=== PATIENT | male | born 1940 | race Caucasian/White ===

== ENCOUNTER 2020-02-18 12:43 | Inpatient (IN) | payer MEDICARE, OTHER, SELFPAY ==
[2020-02-18] VITALS (20 sets, daily range): BP systolic 126–200; BP diastolic 62–93; PULSE 47–62; RESP 9–20; TEMP 36.2–36.8; O2SAT 94–100; BMI 25.1
--- NOTE | 2020-02-18 | DI.ECHO.S_ITS ---
[facility]---------+ [facility] +---------+ : : [address] : : : : [id number] : : : : Phone: [phone] Echocardiogram Report + + :Name: SOBIA SPENCE Study Date: 02/19/2020 Height: 68 in : :[facility] Weight: 165 lb : : Gender: Male BSA: 1.9 m2 : :: 1940 Age: 79 yrs BP: 168/72 mmHg: :Reason For Study: CVA : :Ordering Physician: ARASELI MCKENNA : :PLANNING MANAGER Performed By: Ambreen Mak : :Referring: ARASELI MCKENNA : + + Interpretation Summary The ejection fraction is estimated to be 60-65%. There is mild mitral regurgitation. The ascending aorta is mildly enlarged. Procedure: A two-dimensional transthoracic echocardiogram with color flow and Doppler was performed. The study quality was technically adequate. There is no prior echocardiogram noted for this patient. The patient was in sinus bradycardia with heart rates between 54-60 bpm during the exam. Left Ventricle: The left ventricle is normal in size and wall thickness. The ejection fraction is estimated to be 60-65%. Left ventricular wall motion is normal. Diastolic parameters suggest a relaxation abnormality of the left ventricle, consistent with probable normal filling pressures. Right Ventricle: The right ventricle is normal in size and function. Atria: The left atrium is mildly dilated. Right atrial size is normal. Mitral Valve: The mitral valve is normal in structure and function. There is mild mitral regurgitation. Aortic Valve: The aortic valve is not well visualized. The aortic valve is mildly calcified. There is no aortic valve stenosis. No aortic regurgitation is present. Tricuspid Valve: The tricuspid valve is normal in structure and function. There is trace tricuspid regurgitation. Pulmonic Valve: The pulmonic valve is not well seen, but is grossly normal. There is trace pulmonic regurgitation. Great Vessels: The aortic root is normal size. The ascending aorta is mildly enlarged. The IVC is of normal diameter and collapses greater than 50% with a sniff. This suggests a low right atrial pressure of 3 mm Hg. Pericardium/ Pleura There is no pericardial effusion. There is no pleural effusion. MMode/2D Measurements & Calculations LVIDd: 5.0 cm LVOT diam: 2.3 cm LVIDs: 3.0 cm Ao root diam: 3.5 cm FS: 39.8 % asc Aorta Diam: 4.0 cm IVSd: 0.63 cm Ao Arch Diam (Prox Trans): 2.6 cm LVPWd: 0.96 cm LV vu. diameter/BSA (cm/m^2): 2.6 LV sys. diameter/BSA (cm/m^2): 1.6 LA A2 area: 22.5 cm2 RA long axis: 4.9 cm LA A4 area: 16.4 cm2 RA area: 11.9 cm2 LA length (vol): 4.4 cm RA vol: 24.4 ml LA vol: 70.4 ml RA : 13.0 ml/m2 LA vol index: 37.4 ml/m2 IVC diam: 1.2 cm RVD1 (basal): 3.4 cm TAPSE: 1.7 cm Doppler Measurements & Calculations Ao V2 max: 147.7 cm/sec LVOT Max Crispin: 110.5 cm/sec Ao V2 mean: 102.8 cm/sec LV V1 max P.9 mmHg Ao max P.8 mmHg LV V1 VTI: 29.1 cm Ao mean P.8 mmHg LILLIANA(I,D): 3.4 cm2 Ao V2 VTI: 36.8 cm LILLIANA(V,D): 3.2 cm2 sev ratio: 0.79 LILLIANA indexed to BSA (cm^2/m^2): 1.8 MV E max crispin: 83.0 cm/sec PA V2 max: 66.2 cm/sec MV A max crispin: 92.2 cm/sec PA V2 mean: 40.4 cm/sec MV E/A: 0.90 PA mean P.78 mmHg Med Peak E' Crispin: 4.5 cm/sec PA pr(Accel): 19.1 mmHg E/E' med: 18.5 Lat Peak E' Crispin: 10.4 cm/sec E/E' lat: 8.0 E/e' average: 13.3 MV dec time: 0.33 sec SV(LVOT): 125.8 ml Reading Physician:03:27 PM
--- NOTE | 2020-02-18 | DI.CT.S_ITS ---
PROCEDURE: CT ANGIO HEAD AND NECK INDICATIONS: changes in stroke symptoms TECHNIQUE: Pre-contrast 4.5 mm thick sections acquired from the foramen magnum to the vertex. After the administration of intravenous contrast, 1 mm thick sections acquired from the aortic arch through the [place]. Post-contrast 4.5 mm thick sections then re-acquired from the foramen magnum to the vertex. 3-dimensional cdsfbed-bmdpwhtpd-ntpzocunsb (MIP) and/or volume rendering reformats were acquired of the central intracranial vasculature and neck separately. COMPARISON: [facility], CT, CT ANGIO HEAD AND NECK, 02/18/2020, 16:10. FINDINGS: Image quality: Excellent. BRAIN: CSF spaces: Ventricles are symmetric in size and shape. Basal cisterns are patent. No extra-axial fluid collections. Brain: No midline shift. No acute intracranial hemorrhage or mass effect. Hypodensities in the subcortical and periventricular white matter compatible with chronic microvascular ischemic changes. There is mild age-related cerebral and cerebellar volume loss. Skull and face: Stable postsurgical changes in the left frontoparietal region. Sinuses: Sinuses and mastoids are clear. HEAD CT ANGIOGRAPHY: Anterior circulation: Intracranial internal carotid arteries demonstrate mild atherosclerotic calcifications. The flow within the paired anterior cerebral arteries is normal and symmetric. The flow within the middle cerebral arteries is normal and symmetric. The anterior communicating artery is seen. No aneurysms are seen. Posterior circulation: Atherosclerotic calcifications are again seen in the proximal intracranial portion of the left vertebral artery resulting in a short segment of moderate stenosis. The right vertebral artery is patent. Flow within the posterior cerebral arteries is normal and symmetric. No aneurysms are seen. NECK CT ANGIOGRAPHY: Carotid system: The left common carotid artery arises from the brachiocephalic artery, which is a normal variant. The origins of the common carotid arteries appear patent. The common carotid arteries demonstrate normal caliber and courses. Calcified atherosclerotic plaque is seen at the right carotid bifurcation and proximal right internal carotid artery resulting in less than 50% stenosis. Calcified atherosclerotic plaque is seen in the left carotid bulb resulting in moderate, 50-69%, stenosis of the proximal left internal carotid artery. Posterior circulation: The right vertebral artery origin is patent. Atherosclerotic plaque is seen at the origin of the left vertebral artery resulting in moderate stenosis. The more superior extracranial portions of both vertebral arteries also demonstrate normal courses and calibers. They join to form a normal appearing basilar artery. Soft tissues: Visualized neck soft tissues demonstrate no suspicious abnormalities. Bones: No suspicious bony lesions. Visualized cervical spine demonstrates multilevel degenerative changes.. IMPRESSION: 1. No acute intracranial hemorrhage or mass effect. 2. No new large vessel occlusion or dissection is seen. 3. 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 4. Less than 50% stenosis at the origin of the right internal carotid artery. 5. Moderate short-segment stenoses again seen at the origin of the left vertebral artery and in the V4 segment of the left vertebral artery. Any quantitative measurements of stenosis were performed using NASCET criteria. Dictated by: Charles Dhaliwal M.D. on 02/18/2020 at 21:38 Approved by: Charles Dhaliwal M.D. on 02/18/2020 at 21:57
--- NOTE | 2020-02-18 13:00 | ED_ITS ---
HPI - General Adult General Chief complaint: Weakness Stated complaint: weakness Time Seen by Provider: 02/18/20 13:00 Source: patient and EMS Mode of arrival: EMS Limitations: no limitations History of Present Illness HPI narrative: Patient is a 79-year-old male. History of a traumatic subdural several years ago. Not on anticonvulsants also has a history of coronary artery disease. Had a coronary artery bypass graph greater than 20 years ago. No history of atrial fibrillation here for evaluation of weakness/dizziness. Patient states that he woke up this morning feeling weak and dizzy. He describes an unsteady feeling. Not a vertigo sensation. Denies any other associated symptoms. Stated he did fall at home because of this. Was able to get up on his own. Sustained no injuries from the fall. Went to the dog park where he states that he continue to feel weak and dizzy. He fell again. He did hit his head. There was no loss of consciousness. Patient reports that he continues to feel somewhat progressively worsening with the weakness. Brought in by EMS. Was bradycardic to the high 50s per EMS. Did appear to be irregular on their monitor. Blood sugar was greater than 120. Related Data Home Medications Medication Instructions Recorded Confirmed Adult Low Dose Aspirin 80 mg PO DAILY 02/18/20 02/18/20 atorvastatin 80 mg PO DAILY 02/18/20 02/18/20 levothyroxine [Levoxyl] 112 mcg PO DAILY 02/18/20 02/18/20 lisinopril 5 mg PO DAILY 02/18/20 02/18/20 omeprazole 20 mg PO DAILY 02/18/20 02/18/20 Allergies Allergy/AdvReac Type Severity Reaction Status Date / Time No Known Drug Allergies Allergy Verified 02/18/20 13:20 Review of Systems Constitutional Constitutional: Denies chills, Denies difficulty sleeping, Denies fever(s), Denies headache(s), Denies malaise and Reports weakness Eyes Eyes: Denies exophthalmos and Denies change in vision ENT Ears, Nose, Mouth, and Throat: Denies vertigo, Reports dizziness and Denies headache(s) Cardiovascular Cardiovascular: Denies chest pain, Denies syncope, Denies rapid heart rate, Denies edema, Denies irregular heart rhythm, Reports lightheadedness and Denies dyspnea Respiratory Respiratory: Denies cough and Denies dyspnea Gastrointestinal Gastrointestinal: Denies abdominal pain, Denies nausea and Denies vomiting Genitourinary Genitourinary: Denies dysuria Genitourinary: Denies dysuria Musculoskeletal Musculoskeletal: Denies arthralgias, Denies myalgias, Denies numbness and Denies tingling Integumentary/Breasts Skin/Breast: Denies lesions and Denies rash Neurologic Neurologic: Denies abnormal speech, Denies behavioral changes, Denies confusion, Denies vertigo, Reports dizziness, Denies syncope, Denies headache(s), Reports lack of coordination, Reports localized weakness, Denies numbness, Denies restless legs, Denies tingling and Reports weakness Psychiatric Psychiatric: Denies anxiety, Denies behavioral changes and Denies confusion Hematologic/Lymphatic Hematologic/Lymphatic: Denies easy bleeding and Denies easy bruising Allergic/Immunologic Allergic/Immunologic: Denies urticaria Patient History Medical History Coronary artery disease (Acute) Hypothyroid (Acute) Traumatic subdural hematoma (Acute) Social History Smoking Status: Former smoker Smoking Status: Former smoker Exam Initial Vital Signs Initial Vital Signs: Vital Signs Pulse Rate 47 L 02/18/20 12:53 Respiratory Rate 18 02/18/20 12:53 Blood Pressure 160/70 H 02/18/20 12:53 Pulse Oximetry 100 02/18/20 12:53 Const General: cooperative, comfortable, well developed and well groomed Limitations: mental status not altered HENWI Head: contusion Face and sinus: normal facial exam Mouth: oral mucosae normal Eyes General: appearance normal, both eyes and all related structures Resp Effort & Inspection: normal respiratory effort Auscultation: clear to auscultation bilaterally Cardio Rate: bradycardic Rhythm: regular rhythm GI Inspection: non-distended Palpation: soft Skin Other: Superficial abrasion right ankle superficial abrasion left parietal marty on Neuro General: patient alert, patient awake and patient oriented x3 Cranial Nerves: CN's II-XI intact bilaterally Cognition: normal cognition Speech: speech normal Sensory Exam: no sensory deficits noted Coordination: [id number] test normal Extrem General: normal to inspection and capillary refill normal Psych Appearance: grossly normal and well kempt Scores GCS [place] coma scale eye opening: Spontaneous [place] coma scale verbal response: Orientated [place] coma scale motor response: Obey commands [place] coma scale total score: 15 NIH Stroke Scale Level of Conciousness: Alert, keenly responsive Ask month/age: Answers both questions correctly. Open/close eyes, close hand: Performs both tasks correctly Best gaze horizontal: Normal Visual morfin: No visual loss Facial palsy: Normal symetrical movement Left arm drift: No drift for full 10 sec Right arm drift: No drift for full 10 sec Left leg drift: Drifts down, not to bed Right leg drift: No drift for full 5 sec Limb ataxia: Absent Sensory on face/arms/legs: Normal, no sensory loss Best language: No aphasia, normal Dysarthria: Normal Extinction or inattention: No abnormality Total NIH Stroke scale score: 1 Course Orders Ordered: ED Orders 02/18/20 13:03 CT head/brain wo con Stat 02/18/20 13:04 EKG-12 Lead Stat 02/18/20 13:05 Complete Blood Count AUTO DIFF Stat Comprehensive Metabolic Panel Stat Lipase Stat Partial Thromboplastin Time Stat Prothrombin Time INR Stat Thyroid Stimulating Hormone Stat Troponin & CK Cardiac Panel Stat 02/18/20 13:21 Ammonia (NH3) Stat Vital Signs Vital signs: Vital Signs - 8 hr 02/18/20 12:53 02/18/20 13:14 02/18/20 13:16 Temperature 98.2 F Pulse Rate 47 L 48 L Respiratory Rate 18 15 Blood Pressure 160/70 H Pulse Oximetry 100 100 02/18/20 13:20 02/18/20 13:30 02/18/20 13:54 Temperature Pulse Rate 48 L 48 L 47 L Respiratory Rate 16 12 14 Blood Pressure 126/62 175/73 H Pulse Oximetry 99 100 97 02/18/20 14:00 02/18/20 14:30 02/18/20 14:31 Temperature Pulse Rate 47 L 52 L 53 L Respiratory Rate 15 14 13 Blood Pressure 171/75 H 171/74 H Pulse Oximetry 94 99 99 02/18/20 14:34 Temperature Pulse Rate 54 L Respiratory Rate 18 Blood Pressure 161/71 H Pulse Oximetry 97 Medical Decision Making Lab Data Result diagrams: 02/18/20 13:05 02/18/20 13:05 Labs: Lab Results 02/18/20 02/18/20 02/18/20 Range/Units 13:05 13:05 13:05 WBC 6.7 (4.5-11.0) X10^3/uL RBC 4.12 L (4.5-5.9) X10^6/uL Hgb 13.0 L (13.5-17.5) g/dL Hct 37.3 L (41-53) % MCV 90.4 (80-100) fL MCH 31.4 (26-34) PG MCHC 34.8 (30-36) % RDW 13.0 (11.6-14.8) % Plt Count 173 (150-400) X10^3/uL Neut % (Auto) 61.4 (50-75) % Lymph % (Auto) 25.5 (25-40) % [place] % (Auto) 7.5 (3-14) % Eos % (Auto) 4.9 H (2-4) % Baso % (Auto) 0.7 (0-2) % Neut # (Auto) 4100 (9553-5853) /uL Lymph # (Auto) 1700 (4688-8916) /uL [place] # (Auto) 500 (0-900) /uL Eos # (Auto) 300 (0-450) /uL Baso # (Auto) 0 (0-100) /uL PT 11.3 (10.1-12.7) SECONDS INR 1.0 (0.9-1.3) APTT 24 L (26.4-36.2) SECONDS Sodium 138 (137-145) mmol/L Potassium 4.4 (3.4-5.1) mmol/L Chloride 110 H (98-107) mmol/L Carbon Dioxide 20 L (22-32) mmol/L BUN 28 H (9-20) mg/dL Creatinine 0.94 (0.66-1.25) mg/dL Estimated GFR > 60.0 (>60) mL/min BUN/Creatinine Ratio 29.8 H (6-22) Glucose 127 H (80-110) mg/dL Calcium 9.2 (8.4-10.2) mg/dL Total Bilirubin 0.5 (0.2-1.3) mg/dL AST 27 (17-59) IU/L ALT 27 (<50) IU/L Alkaline Phosphatase 92 (38-126) U/L Ammonia (9-30) umol/L Total Creatine Kinase 82 (55-170) U/L CK-MB (CK-2) TNP CK-MB (CK-2) Rel Index TNP Troponin I < 0.012 (0.01-0.034) ng/mL Total Protein 7.0 (6.3-8.2) g/dL Albumin 4.1 (3.5-5.0) g/dL Globulin 2.9 (1.7-4.1) g/dL Albumin/Globulin Ratio 1.4 (1.0-2.8) Lipase 58 (23-300) U/L TSH (0.47-4.68) uIU/mL 02/18/20 02/18/20 Range/Units 13:05 13:21 WBC (4.5-11.0) X10^3/uL RBC (4.5-5.9) X10^6/uL Hgb (13.5-17.5) g/dL Hct (41-53) % MCV (80-100) fL MCH (26-34) PG MCHC (30-36) % RDW (11.6-14.8) % Plt Count (150-400) X10^3/uL Neut % (Auto) (50-75) % Lymph % (Auto) (25-40) % [place] % (Auto) (3-14) % Eos % (Auto) (2-4) % Baso % (Auto) (0-2) % Neut # (Auto) (6653-5390) /uL Lymph # (Auto) (9397-4414) /uL [place] # (Auto) (0-900) /uL Eos # (Auto) (0-450) /uL Baso # (Auto) (0-100) /uL PT (10.1-12.7) SECONDS INR (0.9-1.3) APTT (26.4-36.2) SECONDS Sodium (137-145) mmol/L Potassium (3.4-5.1) mmol/L Chloride (98-107) mmol/L Carbon Dioxide (22-32) mmol/L BUN (9-20) mg/dL Creatinine (0.66-1.25) mg/dL Estimated GFR (>60) mL/min BUN/Creatinine Ratio (6-22) Glucose (80-110) mg/dL Calcium (8.4-10.2) mg/dL Total Bilirubin (0.2-1.3) mg/dL AST (17-59) IU/L ALT (<50) IU/L Alkaline Phosphatase (38-126) U/L Ammonia < 9 L (9-30) umol/L Total Creatine Kinase (55-170) U/L CK-MB (CK-2) CK-MB (CK-2) Rel Index Troponin I (0.01-0.034) ng/mL Total Protein (6.3-8.2) g/dL Albumin (3.5-5.0) g/dL Globulin (1.7-4.1) g/dL Albumin/Globulin Ratio (1.0-2.8) Lipase (23-300) U/L TSH 4.70 H (0.47-4.68) uIU/mL Point of Care Testing Glucose POC 122 Point of care testing: Point of Care Testing Glucose POC [address] scan - head: Radiologist's Impression: [place] [address] CT Scan Report Signed Patient: Elie Tong FMR#: [id number] : 1940cct:[id number] Age/Sex: 79 / MDate of Service: 02/18/20 Loc: ED Accession Number: [id number] Procedure: CT head/brain wo con Ordering Provider: Paras Mohr D.O. PROCEDURE: CT HEAD/BRAIN WO CON INDICATIONS: weakness hx of bleed TECHNIQUE: Noncontrast 4.5 mm thick angled axial sections acquired from the foramen magnum to the vertex, with coronal and sagittal reformats. For radiation dose reduction, the following was used: automated exposure control, adjustment of mA and/or kV according to patient size. COMPARISON: None. FINDINGS: Image quality: Excellent. CSF spaces: Basal cisterns are patent. No extra-axial fluid collections. There is mild to moderate cerebral volume loss, with resultant ventricular and sulcal prominence. There is slight asymmetric volume loss in the left occipital and posterior temporal lobes and left cerebellar hemisphere. Brain: No intracranial hemorrhage, mass, or mass effect. There are subcortical, periventricular and deep white matter hypodensities consistent with mild to moderate chronic small vessel ischemic changes. There is intracranial internal carotid artery atherosclerosis. Skull and face: Calvarium and visualized facial bones appear intact, without suspicious lesions. Sinuses: Visualized sinuses and mastoids are clear. IMPRESSION: 1. No acute intracranial abnormality. 2. Mild to moderate cerebral volume loss with slight left-sided predominance. 3. Mild to moderate chronic white matter small vessel ischemic changes. Dictated by: Loi Harrison M.D. on 02/18/2020 at 12:19 Approved by: Loi Harrison M.D. on 02/18/2020 at 12:30 ECG Data Attestation: I personally reviewed and interpreted this ECG as follows: Prior ECG tracings: not available for review Interpretation: Sinus bradycardia Ventricular rate of 51 Normal axis Normal QRS Normal QTC One PAC MDM Narrative Medical decision making narrative: After time and food here in the emergency department patient states he is back to normal. He tolerated oral intake. He walked around the department without any problems. His head CT shows no acute changes. His EKG shows no signs of atrial fibrillation despite of what was initially thought on the EMS tracings. Has a NIH score of 1 and that was secondary to his left leg falling however not hitting the bed. He has a nonfocal neurologic exam otherwise. Is alert oriented x3. His head CT shows no signs of a bleed. Considered etiology such as CVA however his exam is not consistent with this. Also considered TIA however his exam is again not 100% consistent with this. Since his head injury several years ago he states that he occasionally has episodes like this. He does have a primary doctor. A referral has been placed to neurology but he has not scheduled this with a neurologist up to this point. I feel patient could be safely discharged home given his exam currently. We did discuss return precautions and follow-up instructions. He expressed understanding and agreement. Discharge Plan Departure Patient Disposition: Home Clinical Impression: Weakness, Dizziness Instructions: DI for Dizziness-Nonvertigo Activity Restrictions/Additional Instructions: Continue all of your medications as directed. I do recommend that you contact your primary provider for follow-up and to discuss the your referral to see Neurology. If you would like you can contact the Behavioral Health Department here at the hospital. You can contact them at [phone]. Return to the emergency department for any new or worsening symptoms. Continue all of your medications as directed Prescriptions: No Action atorvastatin 80 mg Tablet 80 mg PO DAILY RF: 0 Adult Low Dose Aspirin tablet 80 mg PO DAILY RF: 0 lisinopril 5 mg Tablet 5 mg PO DAILY RF: 0 levothyroxine [Levoxyl] 112 mcg tablet 112 mcg PO DAILY RF: 0 omeprazole 20 mg capsule,delayed release(DR/EC) 20 mg PO DAILY RF: 0
--- NOTE | 2020-02-18 13:03 | DI.CT.S_ITS ---
PROCEDURE: CT HEAD/BRAIN WO CON INDICATIONS: weakness hx of bleed TECHNIQUE: Noncontrast 4.5 mm thick angled axial sections acquired from the foramen magnum to the vertex, with coronal and sagittal reformats. For radiation dose reduction, the following was used: automated exposure control, adjustment of mA and/or kV according to patient size. COMPARISON: None. FINDINGS: Image quality: Excellent. CSF spaces: Basal cisterns are patent. No extra-axial fluid collections. There is mild to moderate cerebral volume loss, with resultant ventricular and sulcal prominence. There is slight asymmetric volume loss in the left occipital and posterior temporal lobes and left cerebellar hemisphere. Brain: No intracranial hemorrhage, mass, or mass effect. There are subcortical, periventricular and deep white matter hypodensities consistent with mild to moderate chronic small vessel ischemic changes. There is intracranial internal carotid artery atherosclerosis. Skull and face: Calvarium and visualized facial bones appear intact, without suspicious lesions. Sinuses: Visualized sinuses and mastoids are clear. IMPRESSION: 1. No acute intracranial abnormality. 2. Mild to moderate cerebral volume loss with slight left-sided predominance. 3. Mild to moderate chronic white matter small vessel ischemic changes. Dictated by: Loi Harrison M.D. on 02/18/2020 at 12:19 Approved by: Loi Harrison M.D. on 02/18/2020 at 12:30
[2020-02-18 13:14] LABS: Add Manual Diff / Slide Review NO; Basophils Absolute Auto 0 /uL (0-100); Basophils Percent Auto 0.7 % (0-2); Eosinophils Absolute Auto 300 /uL (0-450); Eosinophils Percent Auto 4.9 % (2-4); Hematocrit 37.3 % (41-53); Lymphocytes Absolute Auto 1700 /uL (1100-4500); Lymphocytes Percent Auto 25.5 % (25-40); Mean Corpuscular HGB Conc 34.8 % (30-36); Mean Corpuscular Hemoglobin 31.4 PG (26-34); Mean Corpuscular Volume 90.4 fL (80-100); Monocytes Absolute Auto 500 /uL (0-900); Monocytes Percent Auto 7.5 % (3-14); Neutrophils Absolute Auto 4100 /uL (1500-7000); Neutrophils Percent Auto 61.4 % (50-75); Platelet Count 173 X10^3/uL (150-400); Red Blood Cell Count 4.12 X10^6/uL (4.5-5.9); White Blood Cell Count 6.7 X10^3/uL (4.5-11.0)
[2020-02-18 13:26] LABS: Prothrombin Time 11.3 SECONDS (10.1-12.7)
[2020-02-18 13:28] LABS: PTT Partial Thromboplastin Tim 24 SECONDS (26.4-36.2)
[2020-02-18 13:32] LABS: Alanine Aminotransferase 27 IU/L (<50); Albumin 4.1 g/dL (3.5-5.0); Albumin Globulin Ratio 1.4 (1.0-2.8); Alkaline Phosphatase 92 U/L (38-126); Aspartate Aminotransferase 27 IU/L (17-59); BUN Creatinine Ratio 29.8 (6-22); Bilirubin Total 0.5 mg/dL (0.2-1.3); Blood Urea Nitrogen 28 mg/dL (9-20); Calcium 9.2 mg/dL (8.4-10.2); Carbon Dioxide 20 mmol/L (22-32); Chloride 110 mmol/L (98-107); Creatine Kinase 82 U/L (55-170); Estimated Glomerular Filt Rate > 60.0 mL/min (>60); Globulin 2.9 g/dL (1.7-4.1); Glucose 127 mg/dL (80-110); HEMOLYSIS 23 (0-50); Lipase 58 U/L (23-300); Potassium 4.4 mmol/L (3.4-5.1); Sodium 138 mmol/L (137-145)
[2020-02-18 13:47] LABS: Troponin I < 0.012 ng/mL (0.01-0.034)
[2020-02-18 14:23] LABS: Ammonia (NH3) < 9 umol/L (9-30)
--- NOTE | 2020-02-18 15:08 | PC.NURSE ---
pt able to ambulate with steady gait from stretcher in room to bathroom and back.
--- NOTE | 2020-02-18 15:12 | PC.NURSE ---
patient denies dizziness or unsteady in legs. Ambulated to restroom and back. Tolerated well
--- NOTE | 2020-02-18 16:00 | PC.NURSE ---
As the patient was walking to the lobby he stopped at the bathroom. Pt came out of the bathroom and slumped against the doorway. Pt told staff he felt dizzy,left sided facial droop noticed that was not there when he was discharged. Code stroke called.
--- NOTE | 2020-02-18 16:08 | DI.CT.S_ITS ---
PROCEDURE: CT ANGIO HEAD AND NECK INDICATIONS: Code stroke TECHNIQUE: Pre-contrast 4.5 mm thick sections acquired from the foramen magnum to the vertex. After the administration of intravenous contrast, 1 mm thick sections acquired from the aortic arch through the [place] of [place]. Post-contrast 4.5 mm thick sections then re-acquired from the foramen magnum to the vertex. 3-dimensional ghurpfv-ulrqpioxc-ifkflcyfbt (MIP) and/or volume rendering reformats were acquired of the central intracranial vasculature and neck separately. COMPARISON: [facility], CT, CT HEAD/BRAIN WO CON, 02/18/2020, 16:10. [facility], CT, CT HEAD/BRAIN WO CON, 02/18/2020, 13:04. FINDINGS: Image quality: Excellent. BRAIN: CSF spaces: Ventricles are normal in size and shape. Basal cisterns are patent. No extra-axial fluid collections. Brain: No midline shift. No intracranial bleeds or masses. Winters-white matter interface appears intact. Skull and face: Calvarium and facial bones appear intact, without suspicious lesions. Left parietal margi holes noted. Small air locule noted in the left parietal scalp possibly related to laceration. Orbits appear normal. Sinuses: Sinuses and mastoids are clear. HEAD CT ANGIOGRAPHY: Anterior circulation: Intracranial internal carotid arteries are normal in flow. Atherosclerotic calcification noted in the supraclinoid segments of the internal carotid arteries bilaterally which causes mild narrowing of the vessels. The flow within the paired anterior cerebral arteries is normal and symmetric. The flow within the middle cerebral arteries is normal and symmetric. The anterior communicating artery is seen. No aneurysms are seen. Posterior circulation: Atherosclerotic calcification noted in the proximal V4 segment of the left vertebral artery which causes moderate, short segment stenosis. Normal flow noted in the left vertebral artery and the basilar artery. Flow within the posterior cerebral arteries is normal and symmetric. No aneurysms are seen. Dural sinuses demonstrate normal postcontrast enhancement. NECK CT ANGIOGRAPHY: Carotid system: The great vessels demonstrate bovine variant anatomy as they arise from the aortic arch. The origins of the common carotid arteries appear patent. The common carotid arteries demonstrate normal caliber and courses. Atherosclerotic plaque noted in the origin of the right internal carotid artery causes less than 50% stenosis of the vessel. Atherosclerotic plaque noted in the origin of the left internal carotid artery which causes moderate, 50-69% stenosis of the vessel. Posterior circulation: Origin of the right vertebral artery is fully patent. Atherosclerotic calcification noted in the origin of the left vertebral artery which causes moderate stenosis. The more superior extracranial portions of both vertebral arteries also demonstrate normal courses and calibers. They join to form a normal appearing basilar artery. Soft tissues: Visualized neck soft tissues demonstrate no suspicious abnormalities. Visualized liver, and spleen are normal. Heart is enlarged. Atherosclerotic calcifications noted in the coronary vasculature. Postsurgical changes compatible with prior CABG procedure are noted. Bones: No suspicious bony lesions. Spine degenerative disc disease and facet arthropathy.Visualized cervical spine appears normally aligned. IMPRESSION: 1. No acute intracranial disease process. 2. No large vessel occlusion, vascular dissection or aneurysm. 3. Mild less than 50% stenosis of the origin of the right internal carotid artery. 4. Moderate, approximately 50-69% stenosis of the origin of the left internal carotid artery. 5. Moderate stenosis of the origin of the left vertebral artery and moderate stenosis of the V4 segment of the left vertebral artery. Any quantitative measurements of stenosis were performed using NASCET criteria. Dictated by: Tyesha Wharton MD, PhD on 02/18/2020 at 16:37 Approved by: Tyesha Wharton MD, PhD on 02/18/2020 at 16:51
--- NOTE | 2020-02-18 16:08 | DI.CT.S_ITS ---
PROCEDURE: CT HEAD/BRAIN WO CON INDICATIONS: Code stroke TECHNIQUE: Noncontrast 4.5 mm thick angled axial sections acquired from the foramen magnum to the vertex, with coronal and sagittal reformats. For radiation dose reduction, the following was used: automated exposure control, adjustment of mA and/or kV according to patient size. COMPARISON: None. FINDINGS: Image quality: Excellent. CSF spaces: Basal cisterns are patent. No extra-axial fluid collections. Ventricles are normal in size and shape. Brain: No midline shift. No intracranial masses or hemorrhage. Winters-white matter interface is normal. Skull and face: There are 2 left frontal margi holes noted. No acute or suspicious osseous lesion. Sinuses: Visualized sinuses and mastoids are clear. IMPRESSION: No acute intracranial hemorrhage or CT evidence of acute large territory infarct. Findings were discussed with Dr. Paras Mohr at 4:30 p.m. PST on 02/18/2020. Dictated by: Dogulas Aldana M.D. on 02/18/2020 at 16:30 Approved by: Douglas Aldana M.D. on 02/18/2020 at 16:32
--- NOTE | 2020-02-18 16:14 | PC.NURSE ---
after being d/c pt was ambulating from bathrom back to room states being very weak had to stabalize himself on wall brought back too room pt is having left sided facial droop with weakness. pt assessed at bedside by ct called pt transported via [facility] [place]
[2020-02-18] MEDS: lisinopriL 10 MG TABLET PO (17:38)
[2020-02-18] MEDS: ASPIRIN 81 MG CHEW TAB 324 MG PO (18:22)
[2020-02-18 18:59] LABS: COVID19 -Nasal RAPID Negative (Negative)
--- NOTE | 2020-02-18 20:12 | P.HP_ITS ---
History of Present Illness History of Present Illness Date Patient Seen: 02/18/20 Time Patient Seen: 20:14 Chief complaint: weakness Narrative: Elie Tong is a 79-year-old male with a history of a subdural hemorrhage and craniotomy in 2018, coronary artery disease, 5 way CABG, hyperlipidemia, and hypothyroidism presented to the emergency department earlier in the day with a fall and weakness. He does indicate to me that he has problems with his balance that he feels is attributed to the subdural hemorrhage from 2 years ago. He is quite tangential. Per the emergency department they had planned on discharging him home and when he left the emergency room he went to use the bathroom on his way out and was having troubles walking. Review of the emergency department note indicated that he was having problems slurring his words, drooping of the left side of his mouth, and NIH score of 10 which of which his subsequent deficits were not known. He underwent imaging with a CT angiogram of the head and neck and when he returned to the emergency department room his NIH scale was 2. They had a Dr. Armenta neurologist form the tele stroke service at [facility] evaluate the patient's imaging studies and they at that time decided to hold tPA due to significant resolution of his symptoms. The patient per the emergency room department report was given oral lisinopril due to a blood pressure of greater than 200 on initial presentation. As mention the patient states that he had a subdural hematoma from a fall that he sustained in 2017. He states he underwent a craniotomy, unsure of what was actually done at [facility] in [place]. He does deny fever sweats or chills, he denies chest pain shortness of breath, he has had some diarrhea over the past few weeks for which he has been eating more red meat to try to alleviate, he has numbing on the tips of his fingers and feet and has previously taken biologics for psoriatic arthritis. Patient's temperature was 97.2?, blood pressure 136/71, heart rate 59, respiratory rate 20, oxygen saturation 97% on room air, he weighs 75 kg with a BMI of 25.1. WBC is 6.7, RBC 4.12, hemoglobin 13, hematocrit 37.3, platelet count 173, sodium 138, potassium 4.4, chloride 110, bicarb 20, BUN 28, creatinine 0.94, GFR is greater than 60, glucose is 127, calcium 9.2, liver enzymes are within normal limits and his troponin is 0.12, TSH is borderline 4.7, and COVID-19 screen is negative. When the patient arrived to the floor, I went in to assess him and he had an NIH scale of 12. Upon leaving the room I was notified by the nurse that he was having increasing worsening deficits. Second code stroke was announced. He is now complaining of not being able to see out of his left eye. Tele stroke was again contacted, spoke to Dr. Giordano. She requested that he have a repeat CTA of the head neck in the case he is showing more occlusion and would require a thrombectomy. Patient History Medical History (Updated 02/18/20 @ 18:03 by Paras Mohr DO) Coronary artery disease (Acute) Hypothyroid (Acute) Traumatic subdural hematoma (Acute) Surgical History (Updated 02/18/20 @ 21:07 by EV Ricci) History of cataract removal with insertion of prosthetic lens (Acute) Hx of cholecystectomy (Acute) Hx of five vessel coronary artery bypass (Acute) Family & Social History Social History: household members none Safety & Behavioral: Feels Safe in Current Yes Environment Been Physically Hurt or No Threatened By a Person Suicidal Ideation Description None Suicide Plan Description No Plan Tobacco & Substance use: Smoking Status Former smoker alcohol intake current alcohol intake frequency holiday/special occasion Substance Use Type does not use Meds Home Medications and Allergies Home Medications Medication Instructions Recorded Confirmed Type Adult Low Dose Aspirin 80 mg PO DAILY 02/18/20 02/18/20 History atorvastatin 80 mg PO DAILY 02/18/20 02/18/20 History levothyroxine [Levoxyl] 112 mcg PO DAILY 02/18/20 02/18/20 History lisinopril 5 mg PO DAILY 02/18/20 02/18/20 History omeprazole 20 mg PO DAILY 02/18/20 02/18/20 History Allergies Allergy/AdvReac Type Severity Reaction Status Date / Time No Known Drug Allergies Allergy Verified 02/18/20 13:20 Review of Systems Review of Systems ROS: Yes All systems reviewed with the patient and are negative except as otherwise documented Exam Vital Signs (past 8 hours): - 02/18/20 12:53 02/18/20 13:14 02/18/20 13:16 Temperature 98.2 F Pulse Rate 47 L 48 L Respiratory Rate 18 15 Blood Pressure 160/70 H Pulse Oximetry 100 100 02/18/20 13:20 02/18/20 13:30 02/18/20 13:54 Temperature Pulse Rate 48 L 48 L 47 L Respiratory Rate 16 12 14 Blood Pressure 126/62 175/73 H Pulse Oximetry 99 100 97 02/18/20 14:00 02/18/20 14:30 02/18/20 14:31 Temperature Pulse Rate 47 L 52 L 53 L Respiratory Rate 15 14 13 Blood Pressure 171/75 H 171/74 H Pulse Oximetry 94 99 99 02/18/20 14:34 02/18/20 15:00 02/18/20 15:30 Temperature Pulse Rate 54 L 51 L 52 L Respiratory Rate 18 13 20 Blood Pressure 161/71 H Pulse Oximetry 97 100 100 02/18/20 15:51 02/18/20 16:39 02/18/20 17:38 Temperature Pulse Rate 54 L 50 L 54 L Respiratory Rate 9 L 16 Blood Pressure 163/68 H 159/67 H 152/93 H Pulse Oximetry 98 96 02/18/20 19:00 Temperature 97.2 F L Pulse Rate 59 L Respiratory Rate 20 Blood Pressure 136/71 Pulse Oximetry 97 Oxygen Delivery Method Room Air Oxygen Flow Rate 0 Narrative Exam Narrative: Gen: Alert, oriented, mildly disheveled appearing 79 y.o. male, HEENT: normocephalic, atraumatic, conjunctiva clear, sclera non-icteric, oral mucosa pink and moist, poor dentition Neck: supple, full ROM, no JVD, trachea is midline Resp: Lungs CTA, non-labored breathing CV: RRR, no murmur or rubs Abd: soft, non-tender, normoactive BTs Skin: no lesions or rashes, dry and intact Neuro: Slurred speech, left sided visual field defect, flattened nasolabial fold with left sided droop, left sided hand real estate associate weaker than right, left sided upper and lower extremity drift, Alert and oriented X 4. Speech and thought pattern slurred but coherent. Extremities: moves all 4 extremities, requires assistance w/ambulation, wasting muscle mass of upper and lower extremities, negative Temitope?s sign Psyche: somewhat tangential, but pleasant, normal mood and affect. Objective Labs Result Diagrams: 02/18/20 13:05 02/18/20 13:05 Labs: Laboratory Results - last 24 hr 02/18/20 02/18/20 02/18/20 13:05 13:05 13:05 WBC 6.7 RBC 4.12 L Hgb 13.0 L Hct 37.3 L MCV 90.4 MCH 31.4 MCHC 34.8 RDW 13.0 Plt Count 173 Neut % (Auto) 61.4 Lymph % (Auto) 25.5 [place] % (Auto) 7.5 Eos % (Auto) 4.9 H Baso % (Auto) 0.7 Neut # (Auto) 4100 Lymph # (Auto) 1700 [place] # (Auto) 500 Eos # (Auto) 300 Baso # (Auto) 0 PT 11.3 INR 1.0 APTT 24 L Sodium 138 Potassium 4.4 Chloride 110 H Carbon Dioxide 20 L BUN 28 H Creatinine 0.94 Estimated GFR > 60.0 BUN/Creatinine Ratio 29.8 H Glucose 127 H Calcium 9.2 Total Bilirubin 0.5 AST 27 ALT 27 Alkaline Phosphatase 92 Ammonia Total Creatine Kinase 82 CK-MB (CK-2) TNP CK-MB (CK-2) Rel Index TNP Troponin I < 0.012 Total Protein 7.0 Albumin 4.1 Globulin 2.9 Albumin/Globulin Ratio 1.4 Lipase 58 TSH COVID-19 PCR 02/18/20 02/18/20 02/18/20 13:05 13:21 18:25 WBC RBC Hgb Hct MCV MCH MCHC RDW Plt Count Neut % (Auto) Lymph % (Auto) [place] % (Auto) Eos % (Auto) Baso % (Auto) Neut # (Auto) Lymph # (Auto) [place] # (Auto) Eos # (Auto) Baso # (Auto) PT INR APTT Sodium Potassium Chloride Carbon Dioxide BUN Creatinine Estimated GFR BUN/Creatinine Ratio Glucose Calcium Total Bilirubin AST ALT Alkaline Phosphatase Ammonia < 9 L Total Creatine Kinase CK-MB (CK-2) CK-MB (CK-2) Rel Index Troponin I Total Protein Albumin Globulin Albumin/Globulin Ratio Lipase TSH 4.70 H COVID-19 PCR Negative Assessment & Plan Assessment & Plan narrative: STROKE/TIA Suspected stroke, acute, present on admission with a presenting NIH score of 12 -Cardiac telemetry, have transferred patient to the ICU -NIH scoring and neuro checks q 1 hours -initiate clopidogrel 75 mg p.o. daily and aspirin 81 mg p.o. daily. He received ASA 325 mg in the ED -Repeated CTA at 2100, per radiology, no change from prior -MR stroke scheduled for 02/18 -Complete Echo for 02/18 -PT/OT/ST evaluation Hypertension, acute with an admission bp of 160/70, present on admission -Allow for permissive hypertension of 220/110 HR 60 to allow for brain perfusion -his blood pressure is currently 183/76 likely due to IV saline bolus and high fluid administration rate -will administer IV hydralazine for elevated BP Prophylaxis to prevent acute kidney injury due to early repeat CTA of the head and neck -he has been given a bolus of 1000 mL of normal saline and a maintenance fluid rate of 175 mL/hour HLD, chronic -Lipid panel, pending -Atorvastatin 80 mg po at bedtime which is his home dose Risk stratification -Fasting lipid panel -A1c VTE prophylaxis: Wells risk score: 0 Enoxaparin 40 mg subQ daily Consults: Telestroke service at [facility], Dr. Giordano consult and involvement is appreciated. Patient is admitted under inpatient ICU status with expected length of stay greater than 2 midnights due to severity of presenting symptoms, risk of adverse event, and complexity of treatment plan. FEN: NS bolus followed by 175 ml/hour maintenance X 2 liters, heart healthy diet, mechanical soft, BMP and magnesium in the am. Dispo: Unknown at this time, he will require closer monitoring that what can be offered on the medical floor, so has been moved to the ICU Code Status: Full code as discussed with patient Critical Care Time Critical Care Time: Yes Total Critical Care Time: 45 minutes Attestation: The high probability of a clinically significant, sudden or life threatening deterioration of the system(s) required my full and direct attention, intervention and personal management. The aggregate critical care time was 45 minutes. This time is in addition to time spent performing reported procedures but includes the following: Data Review and interpretation Patient assessment and monitoring of vital signs Documentation Medication orders and management COVID-19 COVID-19 status: Negative Result date/Date tested (Pos, Neg/Pending): 02/17/20 Scores NIHSS Level of Conciousness: Alert, keenly responsive Ask month/age: Answers both questions correctly. Open/close eyes, close hand: Performs both tasks correctly Best gaze horizontal: Normal Visual morfin: Partial hemianopia (Left side) Facial palsy: Minor paralysis, flattened nasolabial fold, asymmetry on smiling Left arm drift: Some effort against gravity, cannot maintain, drifts down to bed Right arm drift: No drift for full 10 sec Left leg drift: No effort against gravity Right leg drift: Drifts down, not to bed Limb ataxia: Present in one limb Sensory on face/arms/legs: Mild to moderate sensory loss, can tell touch Best language: Mild to moderate, slurs some words Dysarthria: Mild to mod,some slurring Extinction or inattention: No abnormality Total NIH Stroke scale score: 12 Wells' Criteria for PE Clinical signs and symptoms of DVT: No PE is #1 Dx or equally likely: No Heart rate > 100: No Immobilization at least 3 days or surg in previous 4 weeks: No History of PE or DVT: No Hemoptysis: No Malignancy w/Treatment within 6 months or palliative: No Wells' PE Score total: 0 Quality Stroke Contraindication Not Initiating IV-Tpa: Not indicated Onset of Symptoms Date: 02/18/20 Onset of Symptoms Time: 12:00 Symptom Onset Unknown: Yes VTE Deep Vein Thrombosis/Pulmonary Embolism Present on Admission: No
--- NOTE | 2020-02-18 21:00 | PC.NURSE ---
Addendum entered by Alin Simpson R.N. 02/18/20 21:45: late note: approx 2014 called into patients room ,patient states can you tell the DrJoey that i am having some vision problems on my left,i can see the right side of the tv.but the left side is not clear. Info taken to mariza Muñoz, elaine Muñoz asked me to get a NIH because because she was getting a 10,12 but the ER was NIH 1. Approx 1929 I had assisted patient to bathroom prior to this ,patient was left side weak and left facial droop. New NIH at 2027 was 12. Elaine Muñoz was setting up tele/confrence and ordering CT. Addendum entered by Alin Simpson R.N. 02/18/20 21:42: 2139, patient moved to icu Original Note: PATIENT TAKEN TO CT
[2020-02-18] MEDS: SODIUM CHLORIDE 0.9% 1,000 ML 1000 ML IV (21:32)
--- NOTE | 2020-02-18 21:58 | PC.NURSE ---
This RN went into patients room due to code stroke getting called at 2033. Patient was awake, alert, calm and cooperative. 2039 vs-bp 140/72, hr 60, on RA sats 99%. Patient c/o slight pressure headache 3/10 and feeling tired but patient also stated that he is usually asleep around that time. Per CORE ASSEMBLY SUPERVISOR Mouna stated patient was A Fib CVR per portable heart monitor. Blood also collected at this time by open hearth laborer. Per , wanting patient to have CT to head and neck. Took patient to CT at 2099, which was completed by 2109 and brought back up to ac room . NIH was done by Leela KUMAR RN w/a result of 4 from a slight left arm drift that did not hit the bed, minor left facial droop, a slight left leg drift that did not hit the bed, and a slight left arm ataxia. 2129 vs-bp 183/76, hr 63, temp 98.2 and on RA sats 98%. Lelia aware of the vs at that time and patient then moved to ICU room 231 at 2139. Patient was awake, alert, calm and cooperative during transfer to CT scan and to ICU.
--- NOTE | 2020-02-18 22:13 | PC.NURSE ---
Addendum entered by Mouna Goddard R.N. 02/18/20 22:52: Current BP is 200/81 with HR 51 pt asymptomatic, notified Provider no new orders at this time, will continue monitor. Original Note: 2140 Pt moved to ICU from room 210 per Farzana Muñoz PILOT CONTROL OPERATOR HELPER orders for closer monitoring, report received from MALCOLM Ogden. Pt A/Ox3, [facility] on arrival was 4. Pt oriented to room and call light system, connected bedside telemetry, waiting for new orders from provider. Bed low and locked, call light within reach, will continue to monitor.
[2020-02-18 22:41] LABS: Hemoglobin A1C% w Est Avg Glu 5.3 % (4.0-6.0)
[2020-02-18 22:49] LABS: Creatine Kinase 110 U/L (55-170); Magnesium 1.7 mg/dL (1.6-2.3)
[2020-02-18] MEDS: SODIUM CHLORIDE 0.9% 1,000 ML 150 ML IV (22:55)
[2020-02-18 23:02] LABS: Troponin I < 0.012 ng/mL (0.01-0.034)
[2020-02-18 23:04] LABS: CKMB % Relative Index 0.4 % (1.5-5.0); Creatine Kinase MB 0.41 ng/mL (<2.37)
[2020-02-18 23:56] LABS: Bacteria Urine None Seen; RBC Urine None Seen (0-5/HPF); WBC Urine None Seen (0-5/HPF)
[2020-02-19] VITALS (53 sets, daily range): BP systolic 130–237; BP diastolic 61–99; PULSE 43–72; RESP 11–18; TEMP 36.2–36.9; O2SAT 89–98
[2020-02-19 00:01] LABS: UR Morphine/Opiate cutoff 300 Negative (Negative); Ur Creatinine Normal (Normal); Ur Specific Gravity Normal (Normal); Urine Amphetamines Negative (Negative); Urine Barbiturates Negative (Negative); Urine Benzodiazepines Negative (Negative); Urine Cocaine Negative (Negative); Urine MDMA Negative (Negative); Urine Methadone Negative (Negative); Urine Methamphetamines Negative (Negative); Urine Oxycodone Negative (Negative); Urine Phencyclidine Negative (Negative); Urine Tetrahydrocannabinol Negative (Negative); Urine Tricyclic Antidepressant Negative (Negative); Urine pH Normal (Normal)
[2020-02-19 00:03] LABS: Culture Indicated Urine Cult Not Indicated; Urine Comments Microscopic Normal
--- NOTE | 2020-02-19 03:46 | PC.NURSE ---
Nurse Practical Notes-Patient has been oriented x4, speech is slow but appropriate, he is drowsy, rouses to follow commands for NIH, at 0100 scored 2 for partial gaze palsy of Rt eye, minor Lt facial palsy, stood at bedside to void without difficulty or dizziness. 0315 NIH score = 7, Lt arm and Lt leg drift noted, did not hit bed, and mild ataxia in both those limbs as well. HR remains bradycardic 40s-60s, BP 180/72 at 0300, see vital trends. TRAVEL OCCUPATIONAL THERAPIST attempted to obtain Medical History from [facility] as requested by Toni CARRENO, no previous records available except a no show in 2018 and patient had been seen at [facility] in [facility]
[2020-02-19] MEDS: SODIUM CHLORIDE 0.9% 1,000 ML 150 ML IV ×2 (05:04→15:18)
[2020-02-19 05:11] LABS: Add Manual Diff / Slide Review NO; Basophils Absolute Auto 100 /uL (0-100); Basophils Percent Auto 0.9 % (0-2); Eosinophils Absolute Auto 300 /uL (0-450); Eosinophils Percent Auto 4.8 % (2-4); Hematocrit 34.1 % (41-53); Hemoglobin 11.8 g/dL (13.5-17.5); Lymphocytes Absolute Auto 1400 /uL (1100-4500); Lymphocytes Percent Auto 22.9 % (25-40); Mean Corpuscular HGB Conc 34.6 % (30-36); Mean Corpuscular Hemoglobin 31.6 PG (26-34); Mean Corpuscular Volume 91.5 fL (80-100); Monocytes Absolute Auto 700 /uL (0-900); Monocytes Percent Auto 11.5 % (3-14); Neutrophils Absolute Auto 3600 /uL (1500-7000); Neutrophils Percent Auto 59.9 % (50-75); Platelet Count 154 X10^3/uL (150-400); Red Blood Cell Count 3.73 X10^6/uL (4.5-5.9); Red Cell Distribution Width 12.7 % (11.6-14.8); White Blood Cell Count 6.1 X10^3/uL (4.5-11.0)
[2020-02-19 05:21] LABS: Creatine Kinase 109 U/L (55-170)
[2020-02-19 05:24] LABS: Alanine Aminotransferase 22 IU/L (<50); Albumin 3.6 g/dL (3.5-5.0); Albumin Globulin Ratio 1.4 (1.0-2.8); Alkaline Phosphatase 78 U/L (38-126); Aspartate Aminotransferase 23 IU/L (17-59); BUN Creatinine Ratio 23.6 (6-22); Bilirubin Total 0.3 mg/dL (0.2-1.3); Blood Urea Nitrogen 21 mg/dL (9-20); Calcium 8.6 mg/dL (8.4-10.2); Carbon Dioxide 22 mmol/L (22-32); Chloride 113 mmol/L (98-107); Estimated Glomerular Filt Rate > 60.0 mL/min (>60); Globulin 2.5 g/dL (1.7-4.1); Glucose 102 mg/dL (80-110); HEMOLYSIS < 15 (0-50); Magnesium 1.7 mg/dL (1.6-2.3); Potassium 3.8 mmol/L (3.4-5.1); Sodium 140 mmol/L (137-145); Total Protein 6.1 g/dL (6.3-8.2)
[2020-02-19 05:33] LABS: Troponin I < 0.012 ng/mL (0.01-0.034)
[2020-02-19 05:37] LABS: CKMB % Relative Index 0.6 % (1.5-5.0); Creatine Kinase MB 0.68 ng/mL (<2.37)
[2020-02-19 06:09] LABS: Cholesterol 169 mg/dL (140-199); HDL Cholesterol 23 mg/dL (40-60); LDL Cholesterol Calculated 79 mg/dL (<100); Triglycerides 335 mg/dL (35-150)
--- NOTE | 2020-02-19 09:00 | DI.MRI.S_ITS ---
PROCEDURE: MR STROKE Pre- and post-contrast brain MRI, non-contrast brain MR angiogram, pre- and postcontrast neck MR angiogram INDICATIONS: Suspected CVA a. The clinical history for the initial CT workup included a statement of history of bleed. TECHNIQUE: Brain: Noncontrast axial T1 spin echo, axial T2 fast spin echo, sagittal and axial FLAIR, coronal T2 fast spin echo, axial gradient echo, axial diffusion and ADC through the brain. After the administration of contrast, axial 3D VIBE of the cranial vasculature and brain. Brain MRA: Non-contrast 3-D time of flight MR angiogram, with multiple ekmitts-jyvahrgdg-mwdnuojajg (MIP) reformats performed. Neck MRA: Axial and sagittal TruFISP through the neck. Coronal dynamic MR angiogram during administration of contrast in the arterial and venous phases, with 3-dimenstional lupvdwb-zuokszjkx-nkyxuanizc (MIP) reformats constructed from subtraction images. COMPARISON: [facility], CT, CT ANGIO HEAD AND NECK, 02/18/2020, 21:03. [facility], CT, CT ANGIO HEAD AND NECK, 02/18/2020, 16:10. [facility], CT, CT HEAD/BRAIN WO CON, 02/18/2020, 16:10. [facility], CT, CT HEAD/BRAIN WO CON, 02/18/2020, 13:04. FINDINGS: Image quality: Excellent. BRAIN: CSF spaces: Ventricles are normal in size and shape. Basal cisterns are patent. No extra-axial fluid collections. Brain: No intracranial bleeds or mass effects. Winters-white matter interface is normal on the left but on the right there is a thin band of elevated diffusion signal involving the sylvian cortex and contiguously wrapping cephalad into the posterior lentiform nuclei on the right, without mass effect or susceptibility artifact. Diffusion weighted images show no additional areas of subacute or acute ischemic insults. Brainstem appears normal. Normal intravascular flow voids are present. No abnormal intracranial enhancement except at the dural surface of the left frontal region where a subtle elevated FLAIR signal and slight contrast enhancement can be seen.. Skull and face: Calvarial marrow signal is normal. Orbits appear normal. Sinuses: Sinuses and mastoids are clear. BRAIN MR ANGIOGRAM: Anterior circulation: Intracranial internal carotid arteries are normal in size and enhancement. The flow within the paired anterior cerebral arteries is normal and symmetric. The flow within the middle cerebral arteries is normal and symmetric. The anterior communicating artery is seen. No stenoses, occlusions, or aneurysms. Posterior circulation: The visualized portions of the vertebral arteries demonstrate normal caliber, and join to form a normal appearing basilar artery. The flow within the posterior cerebral arteries is normal and symmetric. No stenoses, occlusions, or aneurysms. NECK MR ANGIOGRAM: Carotids: Great vessels demonstrate a conventional anatomy as they arise from the aortic arch. The origins of the common carotid arteries appear patent. The calibers and courses of both common carotid arteries are normal. The bifurcation regions appear normal bilaterally except for slight atherosclerotic irregularity at the origin of the right proximal internal carotid artery, without significant stenosis. The internal carotid arteries demonstrate normal course and caliber. Posterior circulation: The origins of the vertebral arteries appear patent. More superior portions of both vertebral arteries demonstrate normal course and caliber, and join to form a normal appearing basilar artery. Miscellaneous: Subclavian arteries appear patent. Pre-contrast images through the neck show no soft tissue abnormalities. IMPRESSION: BRAIN MRI: No mass lesion or mass effect present. Note is made of a thin band of sylvian cortex and contiguous posterior lentiform nucleus elevated diffusion signal consistent with mild subacute or acute ischemic injury in that area. This cannot be identified on the recent CT scanning. There also is a subtle finding of elevated FLAIR signal and slight contrast enhancement involving the dural surface of the left frontal region, in this patient with provided clinical history suggesting prior intracranial hemorrhage. The findings would raise concern for sequela of minimal dural scarring after subdural hematoma in the left frontal area. Please correlate clinically. No identifiable subdural hematoma is currently found on CT scanning. BRAIN MR ANGIOGRAM: Normal intracranial MR angiogram. NECK MR ANGIOGRAM: Normal cervical MR angiogram for age, with a minimal degree of atherosclerotic irregularity at the origin of the proximal right internal carotid artery.. Dictated by: Jurgen Arellano M.D. on 02/19/2020 at 12:36 Approved by: Jurgen Arellano M.D. on 02/19/2020 at 12:49
[2020-02-19] MEDS: ATORVASTATIN 20 MG TABLET 80 MG PO (10:36)
[2020-02-19] MEDS: ASPIRIN EC 81 MG TABLET PO (10:36)
[2020-02-19] MEDS: lisinopriL 10 MG TABLET PO (10:36)
[2020-02-19] MEDS: ENOXAPARIN 40 MG/0.4 ML SYRINGE SUBCUT (10:37)
[2020-02-19] MEDS: levETIRAcetam 2,000 MG in SODIUM CHLORIDE 0.9% 100 ML 480 ML IV (11:30)
--- NOTE | 2020-02-19 11:48 | OT.IPNOTE ---
Attempted to see pt for OT eval, per nursing hold off as pt to be getting MRI soon. Therefore check on the pt in PM.
[2020-02-19] MEDS: LEVOTHYROXINE 112 MCG TABLET PO (12:38)
--- NOTE | 2020-02-19 12:59 | PT.IIE ---
Surgical History (Last Updated 02/18/20 @ 21:07 by EV Ricci) History of cataract removal with insertion of prosthetic lens (Acute) Hx of cholecystectomy (Acute) Hx of five vessel coronary artery bypass (Acute) Medical History (Last Reviewed 02/18/20 @ 13:21 by Paras Mohr DO) Coronary artery disease (Acute) Hypothyroid (Acute) Traumatic subdural hematoma (Acute) Physical Therapy Inpatient Evaluation/Re-Eval M1 PT/OT-IP Prior Functional Status Start: 02/19/20 08:43 Freq: NEEDED Status: Active Protocol: Document 02/19/20 12:25 HH (Rec: 02/19/20 12:59 [id number]) Medical Review Prior Functional Status Medical History Reviewed Yes Diet/Fluid Consistency Regular Communication no deficits noted Mobility and Gait completely independent without AD but mostly homebound. Pt stated he had a subdural hemorrhage years ago that causes some falls but no injuries. Activities of Daily Living and IADL's completely independent without AD Social History Household Members none Living Arrangements RV Number of Floors (Floors) One Floor Number of Stairs To Enter/Railing? Pt currently lives in a motel with his dog. He does has a RV Home Environment Standard Height Toilet,Tub/ Shower Additional Social History Comment Pt has a subdural hemorrhage and craniotomy in 2018 after a GLF, coronary artery disease, 5 way CABG, hyperlipidemia, and hypothyroidism. M2 PT-IP Current Condition Start: 02/19/20 08:43 Freq: NEEDED Status: Active Protocol: Document 02/19/20 12:25 HH (Rec: 02/19/20 12:59 [id number]) Physical Therapy Current Condition Current Condition Evaluation Date 02/19/20 Treatment Diagnosis Stroke, TIA, s/p GLF, HTN, L sided weakness. Onset Date 02/18/20 Weight Bearing Status Weight Bearing Status Full Weight Bearing M3 PT-IP Subjective Start: 02/19/20 08:43 Freq: NEEDED Status: Active Protocol: Document 02/19/20 12:25 HH (Rec: 02/19/20 12:59 [id number]) Subjective Physical Therapy Visit Type Type Initial Evaluation Visit Start Time 09:50 Visit Stop Time 10:50 Total Visit Minutes 60 Notes Evaluated with KIMBERLEY Monsivais. Nursing staff assisted session intermittently. Pt had a second code stroke during midnight with worsening facial droop and L sided weakness. BP fluctuated between 160s/80s to 200s/90s Number of SPACE PLANNER Visits 0 Physical Therapy Visit Comments Patient Comments I guess im feeling better. Patient Goals to return home once he is medically stable. Therapy Pain Assessment Pain Present Pain Present Denied Pain M4 PT-IP Mobility and Gait Start: 02/19/20 08:43 Freq: NEEDED Status: Active Protocol: Document 02/19/20 12:25 HH (Rec: 02/19/20 12:59 HH [id number]) PT-Bed Mobility Assessment Supine to Sit Supine to Sit Contact Guard Assistance Scooting Scooting to Edge of Bed Contact Guard Assistance PT-Transfer Assessment Sit to and From Stand Sit to and from Stand Minimal Assistance Equipment Transfer Assistive Device None,Gait Belt,Front Wheeled Walker Orthotic/Prosthetic Devices or Brace: No Transfers Transfer Destination Bed,Chair,Bedside Commode Transfer Technique Stand Step Pivot Transfer Ability Level of Assist Minimal Assistance,Use of Upper Extremities Comments Mobility Comments Pt was in bed upon PT and SPT arrival. Stated he needs to have a BM. Pt was AxO4 but feeling weak on Lside. BP in supine = 223/99 but proceeded to BSC transfer d/t pt's urgency. He completed supine to long sit without assistance and pivoted to R EOB CGA. He did c/o slight headache and lightheadiness. He then stood up with CGA and step pivoted himself to his L side with armrests support. Pt immediately had a large BM and he sat the for 5 mins. BP down to 169/74 with slight headache. He then stood up again with FWW CGA and VALIDATION MANAGER assisted in pericare. He was able to stand without support intermittently but no signs of LOB. He then step pivot himself to bedside chair but needed CGA. min A for walker management. Needed cues to keep his walker close and used of armrests to descend. Pt then completed neuro assessment (see below.) However, pt then c/o visual field loss and increase L arm weakness and his manual BP reading at 174/88 by RN. Pt then requested to use BSC to void and he completed transfer with CGA / min A with FWW. Pt sat there for [address] Herzog came in for quick neuro assessment again but symptoms seemed to resolve again. This PT min A pt to stand step pivoted transfer back to chair. No new c/o noted. Call light placed within reach and pt sat in chair comfortably. Gait Assessment Comments Gait Comments did not asess d/t worsening stroke symptoms. Stair Climbing Assessment Comments Stair Climbing Comments did not asess d/t worsening stroke symptoms. PT-Balance Assessment Sitting Balance and Reactions Static Sitting Balance Ability Normal Dynamic Sitting Balance Ability Good Standing Balance and Reactions Static Standing Balance Ability Good Dynamic Standing Balance Ability Fair Device Used none M5 PT-IP Objective Assessments Start: 02/19/20 08:43 Freq: NEEDED Status: Active Protocol: Document 02/19/20 12:25 HH (Rec: 02/19/20 12:59 HH [id number]) Orientation Orientation/Cognition Level of Alertness Alert Orientation Name,Age,Birthday,Month,Date, Year,Day of Week,Place, Situation Language Function Ability No Deficits Noted Safety Awareness Decreased Safety Awareness Memory Description No Deficits Noted Gross Range of Motion Upper Extremity ROM Assessment Left Impaired Impairments slight downward drift at 90 flexion Lower Extremity ROM Assessment Left Impaired Impairments slight downward drift to maintain knee extension Strength Upper Extremity Strength Assessment Left Impaired Shoulder 3+/5 Elbow 4-/5 Wrist 3+/5 Hand 3+/5 Lower Extremity Strength Assessment Left Impaired Hip 4-/5 Knee 3+/5 Ankle 3+/5 Comments Strength Comments slight downward drift at 90 flexion slight downward drift to maintain knee extension Pt presents worsening symptoms after he sat in chair for approx 6 mins but then got improved at the 10 mins josé manuel. Coordination Assessment Gross Coordination Gross Coordination Impaired Assessment Finger to Nose Test Minimal Impairment Pronation/Supination Test Minimal Impairment Foot Tapping Test Minimal Impairment Heel on Lorenzo Test Minimal Impairment Coordination Comments mild delay in motor task execution. Mild overshooting for finger to nose test. Sensation Assessment Sensation Gross Sensation WNL Comments Sensation Comments no difference on sensation to LT/ pressure Muscle Tone Muscle Tone WNL No Muscle Tone Location Left Upper Extremity Type of Tone Hypotonicity Severity of Tone Mild Comments Muscle Tone Comments slightly less tone on L UE Other Assessments Other Other Assessments impaired L peripheral visual field L facial droop noted Pt presents worsening symptoms after he sat in chair for approx 6 mins but then got improved at the 10 mins josé manuel. M6 PT-IP Treatment Start: 02/19/20 08:43 Freq: NEEDED Status: Active Protocol: Document 02/19/20 12:25 HH (Rec: 02/19/20 12:59 [id number]) Physical Therapy Treatment Education Education Provided Safety M7 PT-IP Assessment and Plan Start: 02/19/20 08:43 Freq: NEEDED Status: Active Protocol: Document 02/19/20 12:25 (Rec: 02/19/20 12:59 [id number]) PT Summary Assessment and Plan Potential Rehabilitation Potential Fair Status of Condition at Evaluation Unstable Summary Impairments Pain,ROM,Strength,Balance, Coordination,Sensation,Tone, Cognition,Bed Mobility, Transfers,Gait,Activity Tolerance Assessment Summary This is a moderate complexity evaluation for this 79yo male admitted to for possible stroke and TIA with L sided weakness and facial droop. Pt has been having episodes of worsening stroke symptoms overnight with fluctuating NIH scores. Pt lives alone at a motel with a dog and was independent without AD. Upon assessment, pt's BP begins at 223/93 but back to 169/74 after a large BM. He was only able to tolerate bed <> BSC<> chair transfer d/t fluctuating stroke symptoms. His facial droop, visual field loss and L sided weakness worsened after sitting in chair for couple minutes but improved shortly after. RN and Dr. Herzog did come in to reassess and monitor his condition. Pt will go for MRI check up at noon. At this point, recommend SNF d /t his unstable medical condition but will cont assess based on his progress. Goals Bed Mobility Goal Independent Transfer Goal Independent,Cane,Front Wheeled Walker Gait Goal Independent,Cane,Front Wheel Walker Gait Distance 200 Other Goals 2-3 JF to RV if needed. mobility with LRAD Days to Meet Goals 5 Frequency of Treatment Frequency Of Treatment Once a Day Treatment Plan Physical Therapy Treatment Plan Bed Mobility Training,Transfer Training,Gait Training, Therapeutic Exercise,Balance Retraining,Discharge Planning, Neuromuscular Re-ed Other Recommendations and Next Treatment check vitals Focus L UE and LE strengthening mobility with LRAD Recommendations To Nursing Amount of Assist Needed 1 Person Assist Discharge Recommendations PT Discharge Recommendations Home,Home Health,SNF Rehab Other Discharge Recommendations At this point, recommend SNF d /t his unstable medical condition but will cont assess based on his progress. Equipment Needed for Home Before unable to assess d/t his Discharge unstable presentation. Will cont monitor Transportation Needs at Discharge Private Vehicle,Wheelchair/ Cabulance
--- NOTE | 2020-02-19 13:12 | ST.IPIE ---
Visit Care Team Role Provider Type Paras Mohr DO Emergency Provider Physician Specialty: Emergency Medicine Address: [address] [place] [address], [id number] Email: [email or web address] Elvis Herzog DO Admit Provider Physician Attending Provider Specialty: Internal Medicine Address: [address] [place] [address], [id number] Email: [email or web address] Past Medical History (Last Reviewed 02/18/20 @ 13:21 by Paras Mohr DO) Coronary artery disease (Acute Medical) Hypothyroid (Acute Medical) Traumatic subdural hematoma (Acute Medical) ST IP Initial Evaluation Report WINERY CELLAR HAND Motor Speech Evaluation Start: 02/19/20 12:44 Freq: Status: Active Protocol: Document 02/19/20 12:45 LNK (Rec: 02/19/20 13:12 LNK [id number]) Motor Speech Evaluation Session Time Visit Start Time 09:05 Visit Stop Time 09:25 Total Visit Minutes 20 Setting Setting Acute Care Patient History Source: [employer]). Patient History Per H&P: Elie Tong is a 79-year-old male with a history of a subdural hemorrhage and craniotomy in 2018, coronary artery disease, 5 way CABG, hyperlipidemia, and hypothyroidism presented to the emergency department earlier in the day with a fall and weakness. He does indicate to me that he has problems with his balance that he feels is attributed to the subdural hemorrhage from 2 years ago. He is quite tangential. Per the emergency department they had planned on discharging him home and when he left the emergency room he went to use the bathroom on his way out and was having troubles walking. Review of the emergency department note indicated that he was having problems slurring his words, drooping of the left side of his mouth, and NIH score of 10 which of which his subsequent deficits were not known. He underwent imaging with a CT angiogram of the head and neck and when he returned to the emergency department room his NIH scale was 2. Pt's NIH scores have been highly variable through the night, ranging from 12 to 1. Referral Referring Physician Dr. Herzog Mental Status Mental Status Alert,Responsive,Cooperative Subjective Observations Subjective Pt was in bed having just finished his breakfast. Pt drinking hot coffee. pt reported that he ate all of his breakfast without difficulty. Oral Motor Lips Function Mild Impairment Observation at rest Very slight right side facial droop. Pucker WFL Retraction WFL Tongue Function Mild Impairment Observations at rest Mild deviation to the right Protrusion WFL Retraction WFL Lateralization WFL Jaw Function WFL Observations at rest Several missing or broken teeth noted Respiration/Phonation Diadochokinetic Rates P^ Quality WNL T^ Quality WNL P^T^K^ Quality WNL Speech Intelligibility Awareness/Strategy Use Findings Details Motor Speech Function WFL Type of Impairment Very mild asymmetry right side . All structures and function WFl Assessment Details Assessment Pt presented with oral motor skills within WFL. A mild facial and lingual asymmetry was noted but did not impact speech clarity. He did not produce dysarthric speech, His speech was 100% intelligible. He did not demonstrate s/sx of aphasia. Not difficulty with swallowing informally observed. Pt appeared appropriately cognizant, asking about his current status. Recommendations Treatment Recommended Yes: as indicated Therapy Recommendations Will continue to monitor speech/language and swallowing due to highly variable presentation and NIH scores. Short Term Goals Reassess pt for speech/ language and/or swallowing as needed should pt's overall status change. Patient/Family Education Education Described results of evaluation,Patient Understanding
--- NOTE | 2020-02-19 14:27 | CM.DANOTE ---
Addendum entered by VIKI Nichols 02/19/20 15:33: ADD: Per OT initial eval, pt still with some significant vision disturbances and balance issues and currently fatigues easily and may not be able to tolerate 3 hrs of Acute Inpt Rehab at d/c but currently not safe for d/c home with HH. Recommending SNF at this time. SW met bedside with pt who was sleeping but willing to participate in d/c discussion and confirms he has lived in [place] for 2 years and initial plan was to live on a boat in the [place] but pt states that didn't work out and he bought an RV that he still has but has been living at [facility] correction for at least a few months. Pt states he does not have any local family as he is estranged from most of them and has adult son and family in [place] but pt does not plan to contact them at this time. Pt states his closest friend is the front elevator operator at the [facility]. Pt denies any hx of HH or SNF but has utilized outpt PT after foot surgery many years ago. SW discussed SNF rehab and pt agreeable if needed and would prefer to stay in town and [facility] but aware he is not at baseline. Pt then dozed off and SW unable to wake him. SW called [facility] admissions with new referral and discussed pt situation/status and change to Inpt status from time of admit. [facility] will review and aware d/c plan based on pt progress. Per MD, MRI shows pt had a stroke with post seizure activity. Plan: SW to follow closely on pt progress to determine Acute Inpt Rehab vs SNF vs HH and [facility] review. BF Original Note: Patient is a 79 year old male who was admitted on 02/18/20 for Weakness. Pt has [employer] and [employer] for insurance and his PCP is not listed. EMR was reviewed. Per MD, pt with hx of subdural hematoma and craniotomy in 2018 after GLF. Pt admitted to ruleout CVA vs LAINA. MRI and Echo ordered. Per ST, no noted concerns at this time although pt seems to flux on his symptoms and will remain involved in pt's care. Per PT, recommending SNF vs HH pending pt progress. OT ordered and pending and SW spoke to OT to inquire if pt may be a good candidate for Inpt Rehab for CVA/TIA? OT kindly offers to eval now and update SW if Inpt Rehab a good option at d/c. Pt resides alone in [place] and currently staying correction at [facility] with his dog and is independent at baseline with ADL's. Pt mostly stays home due to his prior craniotomy and current COVID pandemic. Pt does not typically use DME to ambulate and requiring CGA for transfers and mobility with walker. Plan: SW to follow closely after OT eval and recommendations and d/c discussion with pt regarding HH vs rehab pending his progress and MRI results. VIKI Nichols Discharge Planning/Care Management CM Discharge Assessment Start: 02/19/20 14:25 Freq: Status: Active Protocol: Document 02/19/20 14:25 BF (Rec: 02/19/20 14:27 BF [id number]) Discharge Planning Assessment Assigned Radio Mechanic Apprentice VIKI Buitrago Advance Directives? No Advance Directives on File No History Provided By Patient,Medical Record Has Patient been admitted in last 30 No days? Prior Living Arrangements RV Comment Also staying at [facility] with dog Household Members none Type of transporation used prior to Drives own vehicle admit Independent with ADL's Yes Is patient alert and oriented? Yes Caregiver for Another No Comment Inpt Rehab vs HH pending progress with PT/OT Barriers to Discharge No Discharge Plan Inpatient Rehab Unit Transportation Arrangement Friend vs facility van pending pt progress with PT/OT Whiteboard Updated in Patient Room with Yes name and ext. # of Radio Mechanic Apprentice Review Status In Process Please Provide Date Initial DC 02/19/20 Assessment Was Performed Next Review Type Continued Stay Review
--- NOTE | 2020-02-19 14:32 | PT.IIE ---
Surgical History (Last Updated 02/18/20 @ 21:07 by EV Ricci) History of cataract removal with insertion of prosthetic lens (Acute) Hx of cholecystectomy (Acute) Hx of five vessel coronary artery bypass (Acute) Medical History (Last Reviewed 02/18/20 @ 13:21 by Paras Mohr DO) Coronary artery disease (Acute) Hypothyroid (Acute) Traumatic subdural hematoma (Acute) Physical Therapy Inpatient Evaluation/Re-Eval M1 PT/OT-IP Prior Functional Status Start: 02/19/20 08:43 Freq: NEEDED Status: Active Protocol: Document 02/19/20 12:25 HH (Rec: 02/19/20 12:59 [id number]) Medical Review Prior Functional Status Medical History Reviewed Yes Diet/Fluid Consistency Regular Communication no deficits noted Mobility and Gait completely independent without AD but mostly homebound. Pt stated he had a subdural hemorrhage years ago that causes some falls but no injuries. Activities of Daily Living and IADL's completely independent without AD Social History Household Members none Living Arrangements RV Number of Floors (Floors) One Floor Number of Stairs To Enter/Railing? Pt currently lives in a motel with his dog. He does has a RV Home Environment Standard Height Toilet,Tub/ Shower Additional Social History Comment Pt has a subdural hemorrhage and craniotomy in 2018 after a GLF, coronary artery disease, 5 way CABG, hyperlipidemia, and hypothyroidism. M2 PT-IP Current Condition Start: 02/19/20 08:43 Freq: NEEDED Status: Active Protocol: Document 02/19/20 12:25 HH (Rec: 02/19/20 12:59 [id number]) Physical Therapy Current Condition Current Condition Evaluation Date 02/19/20 Treatment Diagnosis Stroke, TIA, s/p GLF, HTN, L sided weakness. Onset Date 02/18/20 Weight Bearing Status Weight Bearing Status Full Weight Bearing M3 PT-IP Subjective Start: 02/19/20 08:43 Freq: NEEDED Status: Active Protocol: Document 02/19/20 12:25 HH (Rec: 02/19/20 12:59 [id number]) Subjective Physical Therapy Visit Type Type Initial Evaluation Visit Start Time 09:50 Visit Stop Time 10:50 Total Visit Minutes 60 Notes Evaluated with KIMBERLEY Monsivais. Nursing staff assisted session intermittently. Pt had a second code stroke during midnight with worsening facial droop and L sided weakness. BP fluctuated between 160s/80s to 200s/90s Number of ENTERER Visits 0 Physical Therapy Visit Comments Patient Comments I guess im feeling better. Patient Goals to return home once he is medically stable. Therapy Pain Assessment Pain Present Pain Present Denied Pain M4 PT-IP Mobility and Gait Start: 02/19/20 08:43 Freq: NEEDED Status: Active Protocol: Document 02/19/20 12:25 HH (Rec: 02/19/20 12:59 HH [id number]) PT-Bed Mobility Assessment Supine to Sit Supine to Sit Contact Guard Assistance Scooting Scooting to Edge of Bed Contact Guard Assistance PT-Transfer Assessment Sit to and From Stand Sit to and from Stand Minimal Assistance Equipment Transfer Assistive Device None,Gait Belt,Front Wheeled Walker Orthotic/Prosthetic Devices or Brace: No Transfers Transfer Destination Bed,Chair,Bedside Commode Transfer Technique Stand Step Pivot Transfer Ability Level of Assist Minimal Assistance,Use of Upper Extremities Comments Mobility Comments Pt was in bed upon PT and SPT arrival. Stated he needs to have a BM. Pt was AxO4 but feeling weak on Lside. BP in supine = 223/99 but proceeded to BSC transfer d/t pt's urgency. He completed supine to long sit without assistance and pivoted to R EOB CGA. He did c/o slight headache and lightheadiness. He then stood up with CGA and step pivoted himself to his L side with armrests support. Pt immediately had a large BM and he sat the for 5 mins. BP down to 169/74 with slight headache. He then stood up again with FWW CGA and PHOTOGRAPHER [employer] assisted in pericare. He was able to stand without support intermittently but no signs of LOB. He then step pivot himself to bedside chair but needed CGA. min A for walker management. Needed cues to keep his walker close and used of armrests to descend. Pt then completed neuro assessment (see below.) However, pt then c/o visual field loss and increase L arm weakness and his manual BP reading at 174/88 by RN. Pt then requested to use BSC to void and he completed transfer with CGA / min A with FWW. Pt sat there for [address] Herzog came in for quick neuro assessment again but symptoms seemed to resolve again. This PT min A pt to stand step pivoted transfer back to chair. No new c/o noted. Call light placed within reach and pt sat in chair comfortably. Gait Assessment Comments Gait Comments did not asess d/t worsening stroke symptoms. Stair Climbing Assessment Comments Stair Climbing Comments did not asess d/t worsening stroke symptoms. PT-Balance Assessment Sitting Balance and Reactions Static Sitting Balance Ability Normal Dynamic Sitting Balance Ability Good Standing Balance and Reactions Static Standing Balance Ability Good Dynamic Standing Balance Ability Fair Device Used none M5 PT-IP Objective Assessments Start: 02/19/20 08:43 Freq: NEEDED Status: Active Protocol: Document 02/19/20 12:25 HH (Rec: 02/19/20 12:59 HH [id number]) Orientation Orientation/Cognition Level of Alertness Alert Orientation Name,Age,Birthday,Month,Date, Year,Day of Week,Place, Situation Language Function Ability No Deficits Noted Safety Awareness Decreased Safety Awareness Memory Description No Deficits Noted Gross Range of Motion Upper Extremity ROM Assessment Left Impaired Impairments slight downward drift at 90 flexion Lower Extremity ROM Assessment Left Impaired Impairments slight downward drift to maintain knee extension Strength Upper Extremity Strength Assessment Left Impaired Shoulder 3+/5 Elbow 4-/5 Wrist 3+/5 Hand 3+/5 Lower Extremity Strength Assessment Left Impaired Hip 4-/5 Knee 3+/5 Ankle 3+/5 Comments Strength Comments slight downward drift at 90 flexion slight downward drift to maintain knee extension Pt presents worsening symptoms after he sat in chair for approx 6 mins but then got improved at the 10 mins josé manuel. Coordination Assessment Gross Coordination Gross Coordination Impaired Assessment Finger to Nose Test Minimal Impairment Pronation/Supination Test Minimal Impairment Foot Tapping Test Minimal Impairment Heel on Lorenzo Test Minimal Impairment Coordination Comments mild delay in motor task execution. Mild overshooting for finger to nose test. Sensation Assessment Sensation Gross Sensation WNL Comments Sensation Comments no difference on sensation to LT/ pressure Muscle Tone Muscle Tone WNL No Muscle Tone Location Left Upper Extremity Type of Tone Hypotonicity Severity of Tone Mild Comments Muscle Tone Comments slightly less tone on L UE Other Assessments Other Other Assessments impaired L peripheral visual field L facial droop noted Pt presents worsening symptoms after he sat in chair for approx 6 mins but then got improved at the 10 mins josé manuel. M6 PT-IP Treatment Start: 02/19/20 08:43 Freq: NEEDED Status: Active Protocol: Document 02/19/20 12:25 HH (Rec: 02/19/20 12:59 [id number]) Physical Therapy Treatment Education Education Provided Safety M7 PT-IP Assessment and Plan Start: 02/19/20 08:43 Freq: NEEDED Status: Active Protocol: Document 02/19/20 12:25 (Rec: 02/19/20 12:59 [id number]) PT Summary Assessment and Plan Potential Rehabilitation Potential Fair Status of Condition at Evaluation Unstable Summary Impairments Pain,ROM,Strength,Balance, Coordination,Sensation,Tone, Cognition,Bed Mobility, Transfers,Gait,Activity Tolerance Assessment Summary This is a moderate complexity evaluation for this 79yo male admitted to for possible stroke and TIA with L sided weakness and facial droop. Pt has been having episodes of worsening stroke symptoms overnight with varying NIH scores. Pt lives alone at a motel with a dog and was independent without AD. Upon assessment, pt's BP begins at 223/93 but back to 169/74 after a large BM. He was only able to tolerate bed <> BSC<> chair transfer d/t fluctuating stroke symptoms. His facial droop, visual field loss and L sided weakness worsened after sitting in chair for couple minutes but improved shortly after. RN and Dr. Herzog did come in to reassess and monitor his condition. Pt will go for MRI check up at noon. At this point, recommend possible acute rehab / SNF d/t his unstable medical condition but will cont assess based on his progress. Goals Bed Mobility Goal Independent Transfer Goal Independent,Cane,Front Wheeled Walker Gait Goal Independent,Cane,Front Wheel Walker Gait Distance 200 Other Goals 2-3 JF to RV if needed. mobility with LRAD Days to Meet Goals 5 Frequency of Treatment Frequency Of Treatment Once a Day Treatment Plan Physical Therapy Treatment Plan Bed Mobility Training,Transfer Training,Gait Training, Therapeutic Exercise,Balance Retraining,Discharge Planning, Neuromuscular Re-ed Other Recommendations and Next Treatment check vitals Focus L UE and LE strengthening mobility with LRAD Recommendations To Nursing Amount of Assist Needed 1 Person Assist Discharge Recommendations PT Discharge Recommendations Home,Home Health,SNF Rehab, Acute Rehab Other Discharge Recommendations At this point, recommend SNF d /t his unstable medical condition but will cont assess based on his progress. Equipment Needed for Home Before unable to assess d/t his Discharge unstable presentation. Will cont monitor Transportation Needs at Discharge Private Vehicle,Wheelchair/ Cabulance
--- NOTE | 2020-02-19 14:35 | PC.NURSE ---
Am shift Pt with NIH score of 7, A/o xo x4, slight slur to speech, mild facial droop. to L, Per Pt this is worse since subdural hematoma in 2018. Denies pain, reports fall at home within last 24 hours. Abrasions noted to knees. Tele SB, 50's. RA 98%, PIV x2, NS infusing @ 100mls/hr. Speech into see Pt, cleared for PO intake. Call light in reach [id number] working with PT and noted with significant weakness to L side, facial droop worse, and drifting to L side with assessment. NIH 11, vision affected as well. BP elevated. No dizziness reported, but increased fatigue with simple transfer. Dr Herzog at bedside to evaluate. Within 5 min. Substantial improvement , almost back to original NIH of 7 this AM. HTN, medicated per emar. Pt reports vision changed have resolved.
[2020-02-19] MEDS: NIFEdipine 30 MG TAB ER PO (15:52)
--- NOTE | 2020-02-19 16:15 | OT.IP.EVAL ---
Past Medical History (Last Reviewed 02/18/20 @ 13:21 by Paras Mohr DO) Coronary artery disease (Acute) Hypothyroid (Acute) Traumatic subdural hematoma (Acute) Surgical History (Last Updated 02/18/20 @ 21:07 by EV Ricci) History of cataract removal with insertion of prosthetic lens (Acute) Hx of cholecystectomy (Acute) Hx of five vessel coronary artery bypass (Acute) Occupational Therapy Inpatient Evaluation/Re-Eval M1 PT/OT-IP Prior Functional Status Start: 02/19/20 16:38 Freq: NEEDED Status: Active Protocol: Document 02/19/20 14:15 [facility] (Rec: 02/19/20 18:57 [facility] [id number]) Medical Review Prior Functional Status Medical History Reviewed Yes Diet/Fluid Consistency Regular Communication no deficits noted Mobility and Gait completely independent without AD but mostly homebound. Pt stated he had a subdural hemorrhage years ago that causes some falls but no injuries. Activities of Daily Living and IADL's completely independent without AD. Pt states drives, walks to the dog park with his dog. Social History Household Members none Living Arrangements RV Number of Floors (Floors) One Floor Number of Stairs To Enter/Railing? Pt currently lives in a motel with his dog. He does has a RV Home Environment Standard Height Toilet,Tub/ Shower Additional Social History Comment Pt has a subdural hemorrhage and craniotomy in 2018 after a GLF, coronary artery disease, 5 way CABG, hyperlipidemia, and hypothyroidism. M2 OT-IP Current Condition Start: 02/19/20 16:38 Freq: Status: Active Protocol: Document 02/19/20 14:15 [facility] (Rec: 02/19/20 18:57 [facility] [id number]) Occupational Therapy Current Condition Current Condition Evaluation Date 02/19/20 Treatment Diagnosis Infarct, decreased mobilty Diagnosis Onset Date 02/18/20 M3 OT- IP Subjective and Pain Start: 02/19/20 16:38 Freq: Status: Active Protocol: Document 02/19/20 14:15 [facility] (Rec: 02/19/20 18:57 [facility] [id number]) OT- Subjective Occupational Therapy Visit Type Type Initial Evaluation Visit Start Time 14:15 Visit Stop Time 15:15 Total Visit Minutes 60 Occupational Therapy Visit Comments Patient Comments Pt in bed, states tired but willing to get up to do OT eval and wanting to use the bathroom. Patient/Caregiver Goals TO get better, get his dog and live in his RV. OT Pain Assessment Pain When Pain Assessed At Rest Pain Present Pain Present Denied Pain M4 OT- IP ADL's Start: 02/19/20 16:38 Freq: Status: Active Protocol: Document 02/19/20 14:15 [facility] (Rec: 02/19/20 18:57 [facility] [id number]) OT [id number] Comments OT Self-Feeding Comments NOt at meal time, however pt needing cues to look to the left find his coffee on his tray table. OT ADL-Grooming Comments OT Grooming Comments Pt did not perform at this time. OT ADL-Dressing Comments OT Dressing Comments Pt did not perform at this time as pt too tired to attempt. OT ADL-Toileting General Evaluation Toileting Ability Standby Assistance Comments OT Toileting Comments Pt able to stand while urinating. Pt however needing close SBA /CGA for safety. OT ADL-Bathing Comments OT Bathing Comments Not at this time. M5 OT- IP IADL's Start: 02/19/20 16:38 Freq: Status: Active Protocol: Document 02/19/20 14:15 [facility] (Rec: 02/19/20 18:57 [facility] [id number]) OT-Instrumental Activities of Daily Living Home Safety Awareness Ability to Problem Solve Emergency Unable to Problem Solve Situations Home Safety Comments Pt initially states to call the hay stacker operator if having an emergency and then after cues able to identify 911. Pt states when asked if the toilet was flooding to clean it up with towels. When asked what he would do to stop the flooding, not able to answer. When given a cue, pt states would turn off the water. Pt not able to come up with ideas of how to prevent a toilet from flooding even after given cues/examples. Pt states again to call the hay stacker operator in case of emergency. Medication Management Medication Management Comments Pt states has been procrastinating or having lack of initiation to refill his pills at times. Money Management Money Management Comments Pt at this time would benefit form assist as having trouble to subtract two digit numbers. Driving Driving Concerns Identified Regarding Safety M6 OT- IP Functional Cognition Start: 02/19/20 16:38 Freq: Status: Active Protocol: Document 02/19/20 14:15 [facility] (Rec: 02/19/20 18:57 [facility] [id number]) Cognitive Factors Limiting Selfcare Function Cognitive Ability Level of Alertness Alert Attention Span Ability Capable of Focused Attention, Capable of Sustained Attention Ability to Follow Commands Able to Follow One Step Commands with Increased Time, Able to Follow One Step Commands with Repetition Memory Description Short Term Impaired Safety Awareness Underestimates Need for Assistance Problem Solving Ability Needs Assist to Identify Solutions Executive Function Ability Unable to Make Plans,Unable to Organize Plans,Unable to Remember Details Cognitive Tests SLUMS Pt scored 25/30 which implies mild neurocognitive deficits which normal for pt's level of education is 27/30. Pt able to recall 2/5 objects after time passed and able to answer 3/4 questions right after paragraph read. At time pt needing increased time to answer the questions. Cognitive Comments Cognitive Assessment Comments Pt increased time to process his movement during testing for proprioception and follow commands. OT- Vision and Hearing OT- Hearing Assessment OT- Hearing Assessment WFL OT- Vision Assessment Visual Attentiveness Impaired Occular Pursuits Impaired Horizontal Visual Convergence Impaired Visual Min Impaired Visual Spacial Neglect Left Vision Assessment Comments Pt having difficulty to look to the left. Pt able to look past midline, however also needing assist to turn his head to see items on the left. M7 OT- IP Mobility and Balance Start: 02/19/20 16:38 Freq: Status: Active Protocol: Document 02/19/20 14:15 [facility] (Rec: 02/19/20 18:57 [facility] [id number]) OT- Bed Mobility Assessment Supine to Sit Supine to Sit Assist Standby Assistance,Bedrails OT-Transfer Assessment Sit to and From Stand Sit to and from Stand Contact Guard Assistance Transfers Transfer Ability Contact Guard Assistance Technique Transfer Destination Bed Devices Transfer Assistive Devices None,Gait Belt Comments Mobility Comments Pt increased time to get up from supine to sit with bed rails. CGA to stand and able to walk with CGA and no device . Pt a bit unsteady as he tires . Pt sat back down on the bed and immediately fell to the left. Pt states felt that his head was heavy and fell onto the bed sideways while seated . Pt BP 163/74 , nursing and physician notified. OT- Balance Assessment Sitting Balance and Reactions Static Sitting Balance Ability Fair Dynamic Sitting Balance Ability Poor Standing Balance and Reactions Static Standing Balance Ability Fair Comments Other Balance Tests/Deviations/Treatment Pt decreased awareness of : midline while seated however initially after first sitting up have no difficulties. M8 OT- IP Objective Assessments Start: 02/19/20 16:38 Freq: Status: Active Protocol: Document 02/19/20 14:15 [facility] (Rec: 02/19/20 18:57 [facility] [id number]) OT Gross Range of Motion Upper Extremity Range of Motion Assessment Within Functional Limits OT Strength Comments Strength Comments RUE 4/5, LUE 4-/5 throughout OT- Coordination Assessment Upper Extremity Finger to Nose Test Left UE Impaired OT Sensation Assessment Comments Summary Comments Intact for light touch BUE, LUE impaired at wrist and hands from proprioception and kinesthesia. M9 OT- IP Assessment and Plan Start: 02/19/20 16:38 Freq: Status: Active Protocol: Document 02/19/20 14:15 [facility] (Rec: 02/19/20 18:57 [facility] [id number]) OT Summary Assessment and Plan Potential Rehabilitation Potential Good Analytic Complexity at Evaluation Moderate Summary OT Impairments Strength,Balance,Coordination, Functional Cognition, Functional Mobility,Self- Feeding,Grooming,Dressing, Toileting,Bathing,Toilet Transfers,Shower Transfers, Activity Tolerance Progress Towards Goals Slow Progress due to Medical Issues,Slow Progress due to Activity Tolerance,Slow Progress due to Cognition Assessment Summary Pt MOD complexity s/p fall and now MRI revealed infarct and physician states may also be complicated by focal seizures. Pt now having decreased peripheral vision on the left, left neglect, decreased balance , midline, deficits with short term memory and executive thinking. Pt would benefit from skilled rehab versus acute rehab pending medical progress, activity tolerance and plan after rehab. Goals Self-Feeding Goal Independent Grooming Goal Independent Dressing Goal Independent Toileting Goal Independent Bathing Goal Independent Toilet Transfer Goal Independent Shower Transfer Goal Independent OT-Other Goals Pt look for items especially to the left for grooming needs without cues so able to complete grooming needs independently with good safety . Days to Meet Goals 25 Frequency of Treatment Frequency Of Treatment Once a Day Treatment Plan OT Treatment Plan ADL Training,Functional Cognition Training,Functional Mobility,Patient/Family Education,Discharge Planning Other Treatment Recommendations and Next Pt to be able to stand at sink Treatment Focus with SBA and complete grooming needs independently. Discharge Recommendations OT Discharge Recommendations SNF Rehab,Acute Rehab Home Equipment Needs Defer to SNF /acute rehab Transportation Needs at Discharge Private Vehicle,Wheelchair/ Cabulance
--- NOTE | 2020-02-19 16:36 | PM.PN.1 ---
Subjective Subjective Date Patient Seen: 02/19/20 Time Patient Seen: 16:37 Interval history: Elie Tong is a 79-year-old male with a history of a subdural hemorrhage and craniotomy in 2018, coronary artery disease, 5 way CABG, hyperlipidemia, and hypothyroidism presented to the emergency department earlier in the day with a fall and weakness. In the emergency room he was noted to have left-sided weakness, facial droop, and slurred speech. His stroke scale has continued to fluctuate throughout the day. This morning when working with physical therapy he started developing a left-sided facial droop and was unable to move his left side. She was sitting on the commode at the time. MRI did reveal a infarct today, did discuss with [facility] as well who stated that given the patient's clear CT angiogram this may be some focal seizure activity near the area of his infarct. They recommended loading him with Keppra to see if there is any benefit and that he follow-up with a neurologist as an outpatient. Exam Vital Signs (past 8 hours): - 02/19/20 09:00 02/19/20 10:00 02/19/20 10:02 Pulse Rate 72 60 61 Blood Pressure Pulse Oximetry 95 97 02/19/20 10:04 02/19/20 10:13 02/19/20 11:00 Pulse Rate 54 L Blood Pressure 237/99 H 169/74 H Pulse Oximetry 97 02/19/20 11:25 02/19/20 11:26 02/19/20 11:30 Pulse Rate 53 L 53 L 49 L Blood Pressure 171/72 H 169/71 H 155/71 H Pulse Oximetry 98 97 98 02/19/20 13:39 02/19/20 13:55 02/19/20 14:00 Pulse Rate 58 L 49 L 56 L Blood Pressure Pulse Oximetry 94 93 94 02/19/20 14:14 02/19/20 14:15 02/19/20 14:21 Pulse Rate 71 63 60 Blood Pressure 187/86 H 173/79 H Pulse Oximetry 97 97 95 02/19/20 14:32 02/19/20 15:39 Pulse Rate 61 Blood Pressure 163/74 H Pulse Oximetry 98 Oxygen Delivery Method Room Air Oxygen Flow Rate 0 Narrative Exam Narrative: Gen: Alert, oriented, mildly disheveled appearing 79 y.o. 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 Speech and thought pattern slurred but coherent. Extremities: moves all 4 extremities, requires assistance w/ambulation, wasting muscle mass of upper and lower extremities, negative Temitope?s sign Psyche: somewhat tangential, but pleasant, normal mood and affect. Objective Labs Result Diagrams: 02/19/20 04:34 02/19/20 04:34 Labs: Laboratory Results - last 24 hr 02/18/20 02/18/20 02/18/20 13:05 18:25 22:20 WBC RBC Hgb Hct MCV MCH MCHC RDW Plt Count Neut % (Auto) Lymph % (Auto) [facility] % (Auto) Eos % (Auto) Baso % (Auto) Neut # (Auto) Lymph # (Auto) [facility] # (Auto) Eos # (Auto) Baso # (Auto) Sodium Potassium Chloride Carbon Dioxide BUN Creatinine Estimated GFR BUN/Creatinine Ratio Glucose Hemoglobin A1c 5.3 Calcium Magnesium Total Bilirubin AST ALT Alkaline Phosphatase Total Creatine Kinase 110 CK-MB (CK-2) 0.41 CK-MB (CK-2) Rel Index 0.4 L Troponin I < 0.012 Total Protein Albumin Globulin Albumin/Globulin Ratio Triglycerides Cholesterol LDL Cholesterol, Calc HDL Cholesterol Urine RBC Urine WBC Urine Bacteria Ur Culture Indicated? Micro UA Comment Nasal Screen MRSA (PCR) U Opiates 300ng/mL cut Ur Oxycodone Screen Urine Methadone Screen Ur Barbiturates Screen U Tricyclic Antidepress Ur Phencyclidine Scrn Ur Amphetamines Screen U Methamphetamines Scrn Ur MDMA Scrn (Ecstasy) U Benzodiazepines Scrn Urine Cocaine Screen U Marijuana (THC) Screen COVID-19 PCR Negative 02/18/20 02/18/20 02/18/20 22:20 22:23 23:30 WBC RBC Hgb Hct MCV MCH MCHC RDW Plt Count Neut % (Auto) Lymph % (Auto) [facility] % (Auto) Eos % (Auto) Baso % (Auto) Neut # (Auto) Lymph # (Auto) [facility] # (Auto) Eos # (Auto) Baso # (Auto) Sodium Potassium Chloride Carbon Dioxide BUN Creatinine Estimated GFR BUN/Creatinine Ratio Glucose Hemoglobin A1c Calcium Magnesium 1.7 Total Bilirubin AST ALT Alkaline Phosphatase Total Creatine Kinase CK-MB (CK-2) CK-MB (CK-2) Rel Index Troponin I Total Protein Albumin Globulin Albumin/Globulin Ratio Triglycerides Cholesterol LDL Cholesterol, Calc HDL Cholesterol Urine RBC None seen Urine WBC None seen Urine Bacteria None seen Ur Culture Indicated? Cult not indicated Micro UA Comment Microscopic normal Nasal Screen MRSA (PCR) Negative for mrsa U Opiates 300ng/mL cut Ur Oxycodone Screen Urine Methadone Screen Ur Barbiturates Screen U Tricyclic Antidepress Ur Phencyclidine Scrn Ur Amphetamines Screen U Methamphetamines Scrn Ur MDMA Scrn (Ecstasy) U Benzodiazepines Scrn Urine Cocaine Screen U Marijuana (THC) Screen COVID-19 PCR 02/18/20 02/19/20 02/19/20 23:30 04:34 04:34 WBC RBC Hgb Hct MCV MCH MCHC RDW Plt Count Neut % (Auto) Lymph % (Auto) [facility] % (Auto) Eos % (Auto) Baso % (Auto) Neut # (Auto) Lymph # (Auto) [facility] # (Auto) Eos # (Auto) Baso # (Auto) Sodium Potassium Chloride Carbon Dioxide BUN Creatinine Estimated GFR BUN/Creatinine Ratio Glucose Hemoglobin A1c Calcium Magnesium Total Bilirubin AST ALT Alkaline Phosphatase Total Creatine Kinase 109 CK-MB (CK-2) 0.68 D CK-MB (CK-2) Rel Index 0.6 L Troponin I < 0.012 Total Protein Albumin Globulin Albumin/Globulin Ratio Triglycerides 335 H Cholesterol 169 LDL Cholesterol, Calc 79 HDL Cholesterol 23 L Urine RBC Urine WBC Urine Bacteria Ur Culture Indicated? Micro UA Comment Nasal Screen MRSA (PCR) U Opiates 300ng/mL cut Negative Ur Oxycodone Screen Negative Urine Methadone Screen Negative Ur Barbiturates Screen Negative U Tricyclic Antidepress Negative Ur Phencyclidine Scrn Negative Ur Amphetamines Screen Negative U Methamphetamines Scrn Negative Ur MDMA Scrn (Ecstasy) Negative U Benzodiazepines Scrn Negative Urine Cocaine Screen Negative U Marijuana (THC) Screen Negative COVID-19 PCR 02/19/20 02/19/20 02/19/20 04:34 04:34 04:34 WBC 6.1 RBC 3.73 L Hgb 11.8 L Hct 34.1 L MCV 91.5 MCH 31.6 MCHC 34.6 RDW 12.7 Plt Count 154 Neut % (Auto) 59.9 Lymph % (Auto) 22.[address] [facility] % (Auto) 11.5 Eos % (Auto) 4.8 H Baso % (Auto) 0.9 Neut # (Auto) 3600 Lymph # (Auto) 1400 [facility] # (Auto) 700 Eos # (Auto) 300 Baso # (Auto) 100 Sodium 140 Potassium 3.8 Chloride 113 H Carbon Dioxide 22 BUN 21 H Creatinine 0.89 Estimated GFR > 60.0 BUN/Creatinine Ratio 23.6 H Glucose 102 Hemoglobin A1c Calcium 8.6 Magnesium 1.7 Total Bilirubin 0.3 AST 23 ALT 22 Alkaline Phosphatase 78 Total Creatine Kinase CK-MB (CK-2) CK-MB (CK-2) Rel Index Troponin I Total Protein 6.1 L Albumin 3.6 Globulin 2.5 Albumin/Globulin Ratio 1.4 Triglycerides Cholesterol LDL Cholesterol, Calc HDL Cholesterol Urine RBC Urine WBC Urine Bacteria Ur Culture Indicated? Micro UA Comment Nasal Screen MRSA (PCR) U Opiates 300ng/mL cut Ur Oxycodone Screen Urine Methadone Screen Ur Barbiturates Screen U Tricyclic Antidepress Ur Phencyclidine Scrn Ur Amphetamines Screen U Methamphetamines Scrn Ur MDMA Scrn (Ecstasy) U Benzodiazepines Scrn Urine Cocaine Screen U Marijuana (THC) Screen COVID-19 PCR Assessment & Plan Assessment & Plan narrative: Elie Tong is a 79-year-old male with a history of a subdural hemorrhage and craniotomy in 2018, coronary artery disease, 5 way CABG, hyperlipidemia, and hypothyroidism who was admitted with an acute CVA. He continues to have waxing and waning signs of stroke on exam, MRI did reveal an infarct and course may be complicated by focal seizures. 1. CVA, acute, present on admission, possibly complicated by related focal seizure activity -telemetry has thus far revealed no acute events -NIH scoring has fluctuated to as high as 14 and as low as 2. Symptoms are routinely left-sided in nature - MRI: thin band of sylvian cortex and contiguous posterior lentiform nucleus elevated diffusion signal consistent with mild subacute or acute ischemic injury in that area. This cannot be identified on the recent CT scanning. There also is a subtle finding of elevated FLAIR signal and slight contrast enhancement involving the dural surface of the left frontal region, in this patient with provided clinical history suggesting prior intracranial hemorrhage. The findings would raise concern for sequela of minimal dural scarring after subdural hematoma in the left frontal area. -continue asa daily and lipitor. -Repeated CTA at 2100, per radiology, no change from prior -Complete Echo for 02/18 was unremarkable. -Continue PT/OT evaluations. -patient's recurrent symptoms may be an associated focal seizure after infarct. [facility] recommended Keppra load and to continue 750 mg BID if effective. -fasting lipid panel with a triglyceride of 335, total cholesterol 169, LDL 79, HDL 23. 2. Hypertension, acute with an admission bp of 160/70, present on admission -Allowed for permissive hypertension of 220/110 HR 60 to allow for brain perfusion. Have increased home lisinopril now and started nifedipine for maybe a possible spastic component to cva as well. 3. HLD, chronic -Lipid panel as noted above. -Atorvastatin 80 mg po at bedtime which is his home dose 4. Hypothyroidism - continue home levothyroxine. VTE prophylaxis: Wells risk score: 0 Enoxaparin 40 mg subQ daily Consults: Telestroke service at [place], Dr. Giordano consult and involvement is appreciated. [facility] also contacted as noted above. Dispo: Remains inpatient, stable for floor. Dispo to rehab or acute rehab depending on final deficits and PT/OT evaluations. Code Status: Full code as discussed with patient Quality Stroke Contraindication Not Initiating IV-Tpa: Not indicated Onset of Symptoms Date: 02/18/20 Onset of Symptoms Time: 12:00 Symptom Onset Unknown: Yes VTE Deep Vein Thrombosis/Pulmonary Embolism Present on Admission: No
--- NOTE | 2020-02-19 18:45 | PC.NURSE ---
Evening shift note: Pt with NIH score of 7, 6, 11 during day shift, currently NIH for this nurse is 5. Pt is A/O x4, with a slight slur to speech, and mild facial droop to L side and vision to L bg is missing. Per Pt this is worse since subdural hematoma in 2018 and subsequent craniotomy. Denies pain, reports fall at dog park within last 24 hours. Abrasions noted to knees. Telemetry SR, 1degree AVB with frequent PAC's HR 66. RA 98%, PIV x2, NS infusing @ 100mls/hr. Speech into see Pt, cleared for PO intake. Pt is extremely impulsive, jumping out of bed with no thought for personal safety, also loses strength in legs and left arm when oob and flops down on bed. Pt is not safe to be oob without supervision. Bed low and locked, call light within reach, will continue to monitor.
[2020-02-19] MEDS: levETIRAcetam 250 MG TABLET 750 MG PO (21:08)
[2020-02-20] VITALS (10 sets, daily range): BP systolic 105–139; BP diastolic 56–70; PULSE 41–94; RESP 16–18; TEMP 36.2–36.7; O2SAT 80–98
[2020-02-20 05:31] LABS: BUN Creatinine Ratio 22.1 (6-22); Blood Urea Nitrogen 19 mg/dL (9-20); Calcium 8.9 mg/dL (8.4-10.2); Carbon Dioxide 25 mmol/L (22-32); Chloride 109 mmol/L (98-107); Estimated Glomerular Filt Rate > 60.0 mL/min (>60); Glucose 102 mg/dL (80-110); HEMOLYSIS < 15 (0-50); Potassium 3.9 mmol/L (3.4-5.1); Sodium 140 mmol/L (137-145)
[2020-02-20 05:35] LABS: Add Manual Diff / Slide Review NO; Basophils Absolute Auto 100 /uL (0-100); Basophils Percent Auto 1.1 % (0-2); Eosinophils Absolute Auto 400 /uL (0-450); Eosinophils Percent Auto 7.2 % (2-4); Hematocrit 34.1 % (41-53); Lymphocytes Absolute Auto 1400 /uL (1100-4500); Lymphocytes Percent Auto 27.5 % (25-40); Mean Corpuscular HGB Conc 35.1 % (30-36); Mean Corpuscular Volume 91.2 fL (80-100); Monocytes Absolute Auto 600 /uL (0-900); Monocytes Percent Auto 11.5 % (3-14); Neutrophils Absolute Auto 2600 /uL (1500-7000); Neutrophils Percent Auto 52.7 % (50-75); Platelet Count 156 X10^3/uL (150-400); Red Blood Cell Count 3.74 X10^6/uL (4.5-5.9); Red Cell Distribution Width 13.2 % (11.6-14.8)
[2020-02-20] MEDS: LEVOTHYROXINE 112 MCG TABLET PO (07:37)
[2020-02-20] MEDS: ENOXAPARIN 40 MG/0.4 ML SYRINGE SUBCUT (09:27)
[2020-02-20] MEDS: ATORVASTATIN 20 MG TABLET 80 MG PO (09:28)
[2020-02-20] MEDS: levETIRAcetam 250 MG TABLET 750 MG PO ×2 (09:29→20:35)
[2020-02-20] MEDS: ASPIRIN EC 81 MG TABLET PO (09:29)
[2020-02-20] MEDS: lisinopriL 10 MG TABLET PO (09:29)
[2020-02-20] MEDS: NIFEdipine 30 MG TAB ER PO (09:29)
--- NOTE | 2020-02-20 10:31 | CM.DPC ---
Discharge Planning/Care Management CM Discharge Assessment Start: 02/19/20 14:25 Freq: Status: Active Protocol: Document 02/19/20 14:25 BF (Rec: 02/19/20 14:27 BF [id number]) Discharge Planning Assessment Assigned Security System Analyst VIKI Buitrago Advance Directives? No Advance Directives on File No History Provided By Patient,Medical Record Has Patient been admitted in last 30 No days? Prior Living Arrangements RV Comment Also staying at [facility] with dog Household Members none Type of transporation used prior to Drives own vehicle admit Independent with ADL's Yes Is patient alert and oriented? Yes Caregiver for Another No Comment Inpt Rehab vs HH pending progress with PT/OT Barriers to Discharge No Discharge Plan Inpatient Rehab Unit Transportation Arrangement Friend vs facility van pending pt progress with PT/OT Whiteboard Updated in Patient Room with Yes name and ext. # of Security System Analyst Review Status In Process Please Provide Date Initial DC 02/19/20 Assessment Was Performed Next Review Type Continued Stay Review
--- NOTE | 2020-02-20 10:32 | CM.DPC ---
Discharge Planning/Care Management CM Discharge Assessment Start: 02/19/20 14:25 Freq: Status: Active Protocol: Document 02/19/20 14:25 BF (Rec: 02/19/20 14:27 BF [id number]) Discharge Planning Assessment Assigned Child Life Specialist VIKI Buitrago Advance Directives? No Advance Directives on File No History Provided By Patient,Medical Record Has Patient been admitted in last 30 No days? Prior Living Arrangements RV Comment Also staying at [facility] with dog Household Members none Type of transporation used prior to Drives own vehicle admit Independent with ADL's Yes Is patient alert and oriented? Yes Caregiver for Another No Comment Inpt Rehab vs HH pending progress with PT/OT Barriers to Discharge No Discharge Plan Inpatient Rehab Unit Transportation Arrangement Friend vs facility van pending pt progress with PT/OT Whiteboard Updated in Patient Room with Yes name and ext. # of Child Life Specialist Review Status In Process Please Provide Date Initial DC 02/19/20 Assessment Was Performed Next Review Type Continued Stay Review
--- NOTE | 2020-02-20 10:32 | CM.DPC ---
Addendum entered by Di Roca LPN 02/20/20 10:51: Clarification: most recent COVID negative test: 02/17 1825. If pt does d/c 02/20 before 1824 no addition test is needed. Original Note: DCP: continued: case received, EMR reviewed and met with pt during and then after Team Bedside Rounds. Discussed d/c dispo options with encouragement to a short snf/rehab stay, recommended today by OT. Pt is doing very well with therapy but will benefit from some fine tuning of ADL abilities as well as balance. He confirms he has no one to help him at d/c and thus would make a poor candidate for INPT rehab. He also has progressed more to the point of HH vs snf. Pt is agreeable snf and [facility] was sent the referral yesterday afternoon. A call to October now shows that the team is reviewing and will get back re ? of acceptance. Encouraged their team to meet pt if they had any concerns. Pt plans to return to his room at [facility] when stable for same. Asked about his dog. He reports the [place] [employer] dept took the dog when he admitted to the hospital and dog is being boarded at a vet clinic in [facility] Dr. Herzog has been updated. P: at this point: [facility] pending acceptance: updated COVID will be needed. PASRR/ noted to be completed. Will review prior to d/c as per protocol.
--- NOTE | 2020-02-20 10:35 | OT.IP.TRT ---
Current Diagnoses Cerebral infarction, unspecified (02/18/20) Occupational Therapy Treatment Note M2 OT-IP Current Condition Start: 02/19/20 16:38 Freq: Status: Active Protocol: Document 02/19/20 14:15 [facility] (Rec: 02/19/20 18:57 [facility] [id number]) Occupational Therapy Current Condition Current Condition Evaluation Date 02/19/20 Treatment Diagnosis Infarct, decreased mobilty Diagnosis Onset Date 02/18/20 M3 OT- IP Subjective and Pain Start: 02/19/20 16:38 Freq: Status: Active Protocol: Document 02/20/20 10:44 [facility] (Rec: 02/20/20 11:05 [facility] [id number]) OT- Subjective Occupational Therapy Visit Type Type Treatment Note Visit Start Time 08:17 Visit Stop Time 10:35 Total Visit Minutes 86 Notes Pt seen for split treatment 817 am-854 am and then 946am- 1035am. Occupational Therapy Visit Comments Patient Comments Pt agreed to see OT this morning before breakfast and then agreed to see OT for a shower after breakfast. Patient/Caregiver Goals To get steadier on his feet. OT Pain Assessment Pain When Pain Assessed At Rest Pain Present Pain Present Denied Pain M4 OT- IP ADL's Start: 02/19/20 16:38 Freq: Status: Active Protocol: Document 02/20/20 10:44 [facility] (Rec: 02/20/20 11:05 [facility] [id number]) OT [id number]-Uilohdn General Evaluation Self-Feeding Ability Standby Assistance Comments OT Self-Feeding Comments Much improved for vision today and independently able to scan his tray to find all the items and even to the left side. Pt needing increased time to cut up his pancakes and find the butter on his tray. Pt needing occasional cues to clear his mouth on the left. OT ADL-Grooming General Evaluation Grooming Ability Independent OT ADL-Dressing General Eval Lower Body Dressing Ability Minimal Assistance Areas Needing Assistance Underpants/Brief,Socks Comments OT Dressing Comments Pt due to decreased dynamic balance and stiffness per pt , needing assist to help get the brief over his left foot. OT ADL-Toileting General Evaluation Toileting Ability Minimal Assistance Areas Needing Assistance Perform Perineal Hygiene Comments OT Toileting Comments Pt needing LEIGH ANN for completeness to wipe as pt not aware that he still needing to be cleaned. OT ADL-Bathing General Evaluation Bathing Ability Minimal Assistance Areas Needing Assistance Wash/Dry Back Comments OT Bathing Comments Assist to wash his back. M6 OT- IP Functional Cognition Start: 02/19/20 16:38 Freq: Status: Active Protocol: Document 02/20/20 10:44 [facility] (Rec: 02/20/20 11:05 [facility] [id number]) Cognitive Factors Limiting Selfcare Function Cognitive Ability Level of Alertness Alert Patient Orientation Name,Month,Year,Day of Week, Place Attention Span Ability Capable of Focused Attention, Capable of Sustained Attention Ability to Follow Commands Able to Follow One Step Commands Memory Description Short Term Impaired Safety Awareness Underestimates Need for Assistance Problem Solving Ability Needs Assist to Identify Solutions Executive Function Ability Unable to Make Plans,Unable to Organize Plans,Unable to Remember Details Cognitive Comments Cognitive Assessment Comments Pt needing cues to look and scan tray for items. Pt needing safety cues to sit down in order to take off his brief. Pt needing cues for completeness to wipe after a bowel movement. Pt needing concrete commands. Pt still at times needing initial cues to initiate task at hand. Pt does agree tht he is not at his baseline especially for his mobility needs and agreeable to go to skilled rehab. OT- Vision and Hearing OT- Hearing Assessment OT- Hearing Assessment WFL OT- Vision Assessment Visual Attentiveness WFL Occular Pursuits WFL Visual Spacial Neglect Left Vision Assessment Comments Minimal neglect to the left today and actively able to move his eyes better to the left today. In addition , he is able to turn his head to the left to find items/objects more efficiently today. M7 OT- IP Mobility and Balance Start: 02/19/20 16:38 Freq: Status: Active Protocol: Document 02/20/20 10:44 [facility] (Rec: 02/20/20 11:05 [facility] [id number]) OT- Bed Mobility Assessment Supine to Sit Supine to Sit Assist Standby Assistance OT-Transfer Assessment Sit to and From Stand Sit to and from Stand Standby Assistance Transfers Transfer Ability Standby Assistance,Contact Guard Assistance Technique Transfer Destination Bed,Chair,Shower Stall Devices Transfer Assistive Devices None,Gait Belt,Front Wheeled Walker Comments Mobility Comments Pt increased time to get to the edge of the bed, but today without use of the bed rails. Sit to stand CGA and able to walk to the bathroom and sink . Pt still unsteady on his feet especially while turning and for uneven terrain. Had pt use FWW and much safer for his balance at this time. OT- Balance Assessment Sitting Balance and Reactions Static Sitting Balance Ability Good Dynamic Sitting Balance Ability Fair Standing Balance and Reactions Static Standing Balance Ability Fair Comments Other Balance Tests/Deviations/Treatment Sitting balance much improved : today and able to sit to assist to tala/doff his socks and brief, however at times needing use of armrest of the recliner or BSC for balance while doing dynamic balance needs. M8 OT- IP Objective Assessments Start: 02/19/20 16:38 Freq: Status: Active Protocol: Document 02/19/20 14:15 [facility] (Rec: 02/19/20 18:57 [facility] [id number]) OT Gross Range of Motion Upper Extremity Range of Motion Assessment Within Functional Limits OT Strength Comments Strength Comments RUE 4/5, LUE 4-/5 throughout OT- Coordination Assessment Upper Extremity Finger to Nose Test Left UE Impaired OT Sensation Assessment Comments Summary Comments Intact for light touch BUE, LUE impaired at wrist and hands from proprioception and kinesthesia. M9 OT- IP Assessment and Plan Start: 02/19/20 16:38 Freq: Status: Active Protocol: Document 02/20/20 10:44 [facility] (Rec: 02/20/20 11:05 [facility] [id number]) OT Summary Assessment and Plan Potential Rehabilitation Potential Good Analytic Complexity at Evaluation Moderate Summary OT Impairments Strength,Balance,Coordination, Functional Cognition, Functional Mobility,Self- Feeding,Grooming,Dressing, Toileting,Bathing,Toilet Transfers,Shower Transfers, Activity Tolerance Progress Towards Goals Progressing Toward Goals Assessment Summary Pt much improved today and able to tolerate toileting and shower today. Pt still unsteady on his feet for dynamic balance. Pt feels he is not yet at his baseline level of being able to walk with no device used to the dog park with his dog. Curently pt is using a FWW here. Pt is motivated to get stronger so he will be able to see his dog soon and go for walks again. Suggest skilled rehab when medically stable. Goals Self-Feeding Goal Independent Grooming Goal Independent Dressing Goal Independent Toileting Goal Independent Bathing Goal Independent Toilet Transfer Goal Independent Shower Transfer Goal Independent Days to Meet Goals 86 Frequency of Treatment Frequency Of Treatment Once a Day Treatment Plan OT Treatment Plan ADL Training,Functional Cognition Training,Functional Mobility,Patient/Family Education,Discharge Planning Discharge Recommendations OT Discharge Recommendations SNF Rehab Home Equipment Needs Defer to SNF Transportation Needs at Discharge Private Vehicle,Wheelchair/ Cabulance
--- NOTE | 2020-02-20 11:48 | PT-IP ANOTE ---
Attempted to see pt at 11:48 AM, pt refused stating he is too tired to participate in therapy at this time. Will try to see pt again after lunch, per pts request.
--- NOTE | 2020-02-20 12:04 | ST.IPTN ---
Visit Care Team Role Provider Type Paras Mohr DO Emergency Provider Physician Address: [address] [place] [address], [id number] Elvis Herzog DO Admit Provider Physician Attending Provider Address: [address] [place] [address], [id number] [employer] Treatment Note [employer] Treatment Note Start: 02/19/20 12:42 Freq: Status: Active Protocol: Document 02/20/20 11:51 LNK (Rec: 02/20/20 12:03 LNK [id number]) Speech Pathology Treatment Note Session Time Visit Start Time 11:45 Visit Stop Time 12:00 Total Visit Minutes 15 Setting Treatment Setting Acute Care Visit Type Note Type Treatment Note General Information General Information Per H&P: Elie Tong is a 79-year-old male with a history of a subdural hemorrhage and craniotomy in 2018, coronary artery disease, 5 way CABG, hyperlipidemia, and hypothyroidism presented to the emergency department earlier in the day with a fall and weakness. He does indicate to me that he has problems with his balance that he feels is attributed to the subdural hemorrhage from 2 years ago. He is quite tangential. Per the emergency department they had planned on discharging him home and when he left the emergency room he went to use the bathroom on his way out and was having troubles walking. Review of the emergency department note indicated that he was having problems slurring his words, drooping of the left side of his mouth, and NIH score of 10 which of which his subsequent deficits were not known. He underwent imaging with a CT angiogram of the head and neck and when he returned to the emergency department room his NIH scale was 2. Pt's NIH scores have been highly variable through the night, ranging from 12 to 1. Subjective Identification Type Name,ID Wristband Observations/Patient Presentation Pt had been sleeping. Awakened for noon meal Chief Complaint(s) Speech Patient Knowledge/Awareness of [employer] Role Good in Treatment Objective Treatment Activities Spoke with nursing who described pt as having a much better day. He has been stable so far today. Pt is eating well, no s/sx aspiration. Speech clearer than yesterday. Observed pt with noon meal. Assessment Patient Response to Treatment Excellent Impairments Identified Memory - Short Term Progress Towards Goals Good Progress Plan Amount of Therapy Recommended No Further Therapy Frequency of Treatment No Further Therapy Therapy Recommendations Discharge from Speech Therapy
--- NOTE | 2020-02-20 15:21 | P.PN_ITS ---
Subjective Subjective Date Patient Seen: 02/20/20 Time Patient Seen: 15:21 Interval history: Elie Tong is a 79-year-old male with a history of a subdural hemorrhage and craniotomy in 2018, coronary artery disease, 5 way CABG, hyperlipidemia, and hypothyroidism presented to the emergency department earlier in the day with a fall and weakness. In the emergency room he was noted to have left-sided weakness, facial droop, and slurred speech. His stroke scale has stabilized after starting keppra to around 4. He is continuing to work with PT and OT and plan is for discharge to SNF for continued rehab possibly as soon as tomorrow. Exam Vital Signs (past 8 hours): - 02/20/20 07:32 02/20/20 07:34 02/20/20 11:55 Temperature 97.8 F Pulse Rate 58 L 59 L 41 L Blood Pressure 121/56 L Pulse Oximetry 98 91 80 L 02/20/20 11:59 02/20/20 12:00 Temperature 97.5 F L Pulse Rate Blood Pressure 137/64 Pulse Oximetry 89 L Oxygen Delivery Method Room Air Oxygen Flow Rate 0 Narrative Exam Narrative: Gen: Alert, oriented, mildly disheveled appearing 79 y.o. 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 Speech and thought pattern slurred but coherent. Extremities: moves all 4 extremities, requires assistance w/ambulation, wasting muscle mass of upper and lower extremities, negative Temitope?s sign Psyche: somewhat tangential, but pleasant, normal mood and affect. Objective Labs Result Diagrams: 02/20/20 04:37 02/20/20 04:37 Labs: Laboratory Results - last 24 hr 02/20/20 02/20/20 04:37 04:37 WBC 5.0 RBC 3.74 L Hgb 12.0 L Hct 34.1 L MCV 91.2 MCH 32.0 MCHC 35.1 RDW 13.2 Plt Count 156 Neut % (Auto) 52.7 Lymph % (Auto) 27.5 [place] % (Auto) 11.5 Eos % (Auto) 7.2 H Baso % (Auto) 1.1 Neut # (Auto) 2600 Lymph # (Auto) 1400 [place] # (Auto) 600 Eos # (Auto) 400 Baso # (Auto) 100 Sodium 140 Potassium 3.9 Chloride 109 H Carbon Dioxide 25 BUN 19 Creatinine 0.86 Estimated GFR > 60.0 BUN/Creatinine Ratio 22.1 H Glucose 102 Calcium 8.9 Assessment & Plan Assessment & Plan narrative: Elie Tong is a 79-year-old male with a history of a subdural hemorrhage and craniotomy in 2018, coronary artery disease, 5 way CABG, hyperlipidemia, and hypothyroidism who was admitted with an acute CVA. 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 1. CVA, acute, present on admission, possibly complicated by related focal se izure activity -telemetry has thus far revealed no acute events -NIH scoring has fluctuated to as high as 14 and as low as 2. Symptoms are routinely left-sided in nature. CTA head and neck x2 without acute thrombus. No interventions recommended per telestroke service. - MRI: thin band of sylvian cortex and contiguous posterior lentiform nucleus elevated diffusion signal consistent with mild subacute or acute ischemic injury in that area. This cannot be identified on the recent CT scanning. There also is a subtle finding of elevated FLAIR signal and slight contrast enhancement involving the dural surface of the left frontal region, in this patient with provided clinical history suggesting prior intracranial hemorrhage. The findings would raise concern for sequela of minimal dural scarring after subdural hematoma in the left frontal area. -continue asa daily and lipitor. -Complete Echo 02/18 was unremarkable. -Continue PT/OT, likely discharge to SNF. -patient's recurrent symptoms may be an associated focal seizure after infarct. [facility] neurology recommended Keppra load and to continue 750 mg BID if effective, which it has been. Recommend outpatient neurology follow up. -fasting lipid panel with a triglyceride of 335, total cholesterol 169, LDL 79, HDL 23. 2. Hypertension, acute with an admission bp of 160/70, present on admission -Allowed for permissive hypertension of 220/110 HR 60 to allow for brain perfusion. Have increased home lisinopril now and started nifedipine for maybe a possible spastic component to cva as well. 3. HLD, chronic -Lipid panel as noted above. -Atorvastatin 80 mg po at bedtime which is his home dose 4. Hypothyroidism - continue home levothyroxine. TSH unremarkable. VTE prophylaxis: Wells risk score: 0 Enoxaparin 40 mg subQ daily Consults: Telestroke service at [place], Dr. Giordano consult and involvement is appreciated. [facility] stroke service also contacted as noted above. Dispo: Remains inpatient, stable for floor. Dispo to rehab or acute rehab depending on final deficits and PT/OT evaluations, likely SNF rehab based on most recent evaluations. Code Status: Full code as discussed with patient COVID-19 COVID-19 status: Negative Quality Stroke Contraindication Not Initiating IV-Tpa: Not indicated Onset of Symptoms Date: 02/18/20 Onset of Symptoms Time: 12:00 Symptom Onset Unknown: Yes VTE Deep Vein Thrombosis/Pulmonary Embolism Present on Admission: No
--- NOTE | 2020-02-20 15:33 | PT.IPTN ---
Current Diagnoses Cerebral infarction, unspecified (02/18/20) Physical Therapy Treatment Note M2 PT-IP Current Condition Start: 02/19/20 08:43 Freq: NEEDED Status: Active Protocol: Document 02/19/20 12:25 HH (Rec: 02/19/20 12:59 HH [id number]) Physical Therapy Current Condition Current Condition Evaluation Date 02/19/20 Treatment Diagnosis Stroke, TIA, s/p GLF, HTN, L sided weakness. Onset Date 02/18/20 Weight Bearing Status Weight Bearing Status Full Weight Bearing M3 PT-IP Subjective Start: 02/19/20 08:43 Freq: NEEDED Status: Active Protocol: Document 02/20/20 15:06 KS (Rec: 02/20/20 16:23 KS [id number]) Subjective Physical Therapy Visit Type Type Treatment Note Visit Start Time 15:06 Visit Stop Time 15:33 Total Visit Minutes 27 Number of CLAIMS ADJUSTER Visits 1 Physical Therapy Visit Comments Patient Comments Pt agreeable to working w/ therapy. Therapy Pain Assessment Pain Present Pain Present Denied Pain M4 PT-IP Mobility and Gait Start: 02/19/20 08:43 Freq: NEEDED Status: Active Protocol: Document 02/20/20 15:06 KS (Rec: 02/20/20 16:23 KS [id number]) PT-Bed Mobility Assessment Supine to Sit Supine to Sit Contact Guard Assistance Sit to Supine Sit to Supine Contact Guard Assistance Scooting Scooting to Edge of Bed Contact Guard Assistance PT-Transfer Assessment Sit to and From Stand Sit to and from Stand Contact Guard Assistance,1 Person Assistance,Use of Upper Extremities Equipment Transfer Assistive Device None,Gait Belt,Front Wheeled Walker Orthotic/Prosthetic Devices or Brace: No Transfers Transfer Destination Bed,Toilet Transfer Technique pt ambulated w/ FWW Transfer Ability Level of Assist Contact Guard Assistance,1 Person Assistance,Use of Upper Extremities Comments Mobility Comments Pt in bed upon arrival from therapy. CGA for sup<>sit and scooting EOB. CGA and cues for hand placement for sit<>stand w/ FWW. Pt then performed 30 sec weight shifting followed by [address]. Pt then requested to use bathroom and ambulated ~20 ft to bathroom w/ FWW and CGA. Pt stood while voiding and then ambulated ~10 ft to sink and was able to maintain balanced while brushing teeth and washing hands. Pt then requested to try ambulating w/ o FWW. Pt ambulated ~15 ft around room w/o AD and CGA. Pt was slightly more unsteady w/ o AD. Pt then ambulated ~[address] w/ FWW and CGA. Pt does list towards left when ambulating w/ and w/o AD and needed min cues for FWW management. Pt reported soreness in LUE when using FWW . He returned to room and stand<>sit<>sup in bed CGA. Pt left in bed w/ all needs in reach. Gait Assessment Gait Gait Assistance Required: Contact Guard Assist,1 Person Assist Distance (Feet) 180 Able to Maintain Weight Bearing Status Yes During Gait Assistive Devices Assistive Device None,Gait Belt,Front Wheeled Walker Gait Deviations General Gait Pattern Antalgic,Decreased Feet Clearance,Lateral Trunk Lean, Wide Based Gait Factors Limiting Gait Function Factors Limiting Gait Function Decreased Activity Tolerance, Decreased Strength, Incoordination,Poor Balance, Poor Safety Awareness Comments Gait Comments Pt ambulated ~180 ft total CGA (15 ft w/o AD) and remainder w/ FWW. Pt slightly more unsteady w/o AD, but lists to L side w/ and w/o FWW. Pt reported he is quicker to fatigue and less endurance than normal. Stair Climbing Assessment Comments Stair Climbing Comments Did not assess PT-Balance Assessment Sitting Balance and Reactions Static Sitting Balance Ability Normal Dynamic Sitting Balance Ability Good Standing Balance and Reactions Static Standing Balance Ability Good Dynamic Standing Balance Ability Fair Device Used none M5 PT-IP Objective Assessments Start: 02/19/20 08:43 Freq: NEEDED Status: Active Protocol: Document 02/19/20 12:25 (Rec: 02/19/20 12:59 [id number]) Orientation Orientation/Cognition Level of Alertness Alert Orientation Name,Age,Birthday,Month,Date, Year,Day of Week,Place, Situation Language Function Ability No Deficits Noted Safety Awareness Decreased Safety Awareness Memory Description No Deficits Noted Gross Range of Motion Upper Extremity ROM Assessment Left Impaired Impairments slight downward drift at 90 flexion Lower Extremity ROM Assessment Left Impaired Impairments slight downward drift to maintain knee extension Strength Upper Extremity Strength Assessment Left Impaired Shoulder 3+/5 Elbow 4-/5 Wrist 3+/5 Hand 3+/5 Lower Extremity Strength Assessment Left Impaired Hip 4-/5 Knee 3+/5 Ankle 3+/5 Comments Strength Comments slight downward drift at 90 flexion slight downward drift to maintain knee extension Pt presents worsening symptoms after he sat in chair for approx 6 mins but then got improved at the 10 mins josé manuel. Coordination Assessment Gross Coordination Gross Coordination Impaired Assessment Finger to Nose Test Minimal Impairment Pronation/Supination Test Minimal Impairment Foot Tapping Test Minimal Impairment Heel on Lorenzo Test Minimal Impairment Coordination Comments mild delay in motor task execution. Mild overshooting for finger to nose test. Sensation Assessment Sensation Gross Sensation WNL Comments Sensation Comments no difference on sensation to LT/ pressure Muscle Tone Muscle Tone WNL No Muscle Tone Location Left Upper Extremity Type of Tone Hypotonicity Severity of Tone Mild Comments Muscle Tone Comments slightly less tone on L UE Other Assessments Other Other Assessments impaired L peripheral visual field L facial droop noted Pt presents worsening symptoms after he sat in chair for approx 6 mins but then got improved at the 10 mins josé manuel. M6 PT-IP Treatment Start: 02/19/20 08:43 Freq: NEEDED Status: Active Protocol: Document 02/20/20 15:06 KS (Rec: 02/20/20 16:23 KS [id number]) Physical Therapy Treatment Education Education Provided Safety M7 PT-IP Assessment and Plan Start: 02/19/20 08:43 Freq: NEEDED Status: Active Protocol: Document 02/20/20 15:06 KS (Rec: 02/20/20 16:23 KS [id number]) PT Summary Assessment and Plan Potential Rehabilitation Potential Fair Status of Condition at Evaluation Unstable Summary Impairments Pain,ROM,Strength,Balance, Coordination,Sensation,Tone, Cognition,Bed Mobility, Transfers,Gait,Activity Tolerance Progress Towards Goals Progressing Toward Goals,Slow Progress due to Medical Issues ,Slow Progress due to Activity Tolerance Assessment Summary Pt CGA for bed mobility, transfers, and ambulation. Pt showed improvement w/ activity tolerance today and was able to ambulate ~180 ft. Pt trialled ambulation w/o AD ~15 ft but was slightly unsteady and more stable w/ FWW. Pt reported LUE soreness and overall fatigue after ambulating and stated he is still not feeling normal. Pt lists and leans towards L side when ambulating and needs occasional cues for FWW management. PT will benefit from SNF to improve gait, balance, and tolerance for activity. Goals Bed Mobility Goal Independent Transfer Goal Independent,Cane,Front Wheeled Walker Gait Goal Independent,Cane,Front Wheel Walker Gait Distance 200 Other Goals 2-3 JF to RV if needed. mobility with LRAD Days to Meet Goals 5 Frequency of Treatment Frequency Of Treatment Once a Day Treatment Plan Physical Therapy Treatment Plan Bed Mobility Training,Transfer Training,Gait Training, Therapeutic Exercise,Balance Retraining,Discharge Planning, Neuromuscular Re-ed Other Recommendations and Next Treatment check vitals Focus L UE and LE strengthening mobility with LRAD Recommendations To Nursing Amount of Assist Needed 1 Person Assist Discharge Recommendations PT Discharge Recommendations Home,Home Health,SNF Rehab Other Discharge Recommendations At this point, recommend SNF d /t his unstable medical condition but will cont assess based on his progress. Equipment Needed for Home Before FWW if d/c home Discharge Transportation Needs at Discharge Private Vehicle,Wheelchair/ Cabulance
[2020-02-21 00:53] VITALS: BP 101/57; PULSE 58; RESP 16; TEMP 36.4; O2SAT 96
[2020-02-21 04:13] VITALS: BP 109/56; PULSE 57; RESP 16; TEMP 36.3
[2020-02-21 04:44] VITALS: PULSE 66
[2020-02-21] MEDS: LEVOTHYROXINE 112 MCG TABLET PO (06:34)
[2020-02-21 08:00] VITALS: BP 131/67; PULSE 60; RESP 18; TEMP 36; O2SAT 98
[2020-02-21] MEDS: ASPIRIN EC 81 MG TABLET PO (09:35)
[2020-02-21] MEDS: lisinopriL 10 MG TABLET PO (09:35)
[2020-02-21] MEDS: ENOXAPARIN 40 MG/0.4 ML SYRINGE SUBCUT (09:35)
[2020-02-21] MEDS: levETIRAcetam 250 MG TABLET 750 MG PO (09:35)
[2020-02-21] MEDS: NIFEdipine 30 MG TAB ER PO (09:36)
[2020-02-21] MEDS: ATORVASTATIN 20 MG TABLET 80 MG PO (09:57)
--- NOTE | 2020-02-21 10:19 | P.DS_ITS ---
History of Present Illness History of Present Illness Date Patient Seen: 02/21/20 Time Patient Seen: 10:19 Chief complaint: weakness Narrative: As per EV Ricci: Elie Tong is a 79-year-old male with a history of a subdural hemorrhage and craniotomy in 2018, coronary artery disease, 5 way CABG, hyperlipidemia, and hypothyroidism presented to the emergency department earlier in the day with a fall and weakness. He does indicate to me that he has problems with his balance that he feels is attributed to the subdural hemorrhage from 2 years ago. He is quite tangential. Per the emergency department they had planned on discharging him home and when he left the emergency room he went to use the bathroom on his way out and was having troubles walking. Review of the emergency department note indicated that he was having problems slurring his words, drooping of the left side of his mouth, and NIH score of 10 which of which his subsequent deficits were not known. He underwent imaging with a CT angiogram of the head a nd neck and when he returned to the emergency department room his NIH scale was 2. They had a Dr[address] Armenta neurologist form the tele stroke service at [place] evaluate the patient's imaging studies and they at that time decided to hold tPA due to significant resolution of his symptoms. The patient per the emergency room department report was given oral lisinopril due to a blood pressure of greater than 200 on initial presentation. As mention the patient states that he had a subdural hematoma from a fall that he sustained in 2017. He states he underwent a craniotomy, unsure of what was actually done at [facility] in [place]. He does deny fever sweats or chills, he denies chest pain shortness of breath, he has had some diarrhea over the past few weeks for which he has been eating more red meat to try to alleviate, he has numbing on the tips of his fingers and feet and has previously taken biologics for psoriatic arthritis. Patient's temperature was 97.2?, blood pressure 136/71, heart rate 59, respiratory rate 20, oxygen saturation 97% on room air, he weighs 75 kg with a BMI of 25.1. WBC is 6.7, RBC 4.12, hemoglobin 13, hematocrit 37.3, platelet count 173, sodium 138, potassium 4.4, chloride 110, bicarb 20, BUN 28, creatinine 0.94, GFR is greater than 60, glucose is 127, calcium 9.2, liver enzymes are within normal limits and his troponin is 0.12, TSH is borderline 4.7, and COVID-19 screen is negative. When the patient arrived to the floor, I went in to assess him and he had an NIH scale of 12. Upon leaving the room I was notified by the nurse that he was having increasing worsening deficits. Second code stroke was announced. He is now complaining of not being able to see out of his left eye. Tele stroke was again contacted, spoke to Dr. Giordano. She requested that he have a repeat CTA of the head neck in the case he is showing more occlusion and would require a thrombectomy. Discharge Providers Provider Date of admission: 02/18/20 18:28 Discharge Date: 02/21/20 Consults: 02/18/20 19:29 Consult to Discharge Planning Routine Comment: Consult to Occupational Therapy Evaluate & Treat Comment: Physician Instructions: Evaluate and treat Consult to Physical Therapy Evaluate & Treat Comment: Physician Instructions: Evaluate and Treat Consult to Speech Therapy Evaluate & Treat Comment: Physician Instructions: Evaluate and treat 02/18/20 20:51 Consult to Discharge Planning Routine Comment: Consult to Occupational Therapy Evaluate & Treat Comment: Physician Instructions: Evaluate and treat Consult to Physical Therapy Evaluate & Treat Comment: Physician Instructions: Evaluate and Treat Consult to Speech Therapy Evaluate & Treat Comment: Physician Instructions: Evaluate and treat Discharge provider: Elvis Herzog DO Summary Hospital Course Discharge Diagnosis: Please see hospital course by problem list noted below. Hospital Course: Elie Tong is a 79-year-old male with a history of a subdural hemorrhage and craniotomy in 2018, coronary artery disease, 5 way CABG, hyperlipidemia, and hypothyroidism who was admitted with an acute CVA. 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 He is being discharged to SNF rehab based on PT/OT recommendations. Patient lives alone in a hotel. 1. CVA, acute, present on admission, possibly complicated by related focal seizure activity -telemetry has thus far revealed no acute events -NIH scoring has fluctuated to as high as 14 and as low as 2 but improved to around 4 after initiation of keppra. Symptoms are routinely left-sided in nature. CTA head and neck x2 without acute thrombus. No interventions recommended per telestroke service. - MRI: thin band of sylvian cortex and contiguous posterior lentiform nucleus elevated diffusion signal consistent with mild subacute or acute ischemic injury in that area. This cannot be identified on the recent CT scanning. There also is a subtle finding of elevated FLAIR signal and slight contrast enhancement involving the dural surface of the left frontal region, in this patient with provided clinical history suggesting prior intracranial hemorrhage. The findings would raise concern for sequela of minimal dural scarring after subdural hematoma in the left frontal area. -continue asa daily and lipitor. -Complete Echo 02/18 was unremarkable. -Continued PT/OT, recommended discharge to SNF. -patient's recurrent symptoms likely associated focal seizure after infarct. [place] neurology recommended Keppra load and to continue 750 mg BID if effective, which it has been. [place] did recommended outpatient neurology follow up. -fasting lipid panel with a triglyceride of 335, total cholesterol 169, LDL 79, HDL 23. 2. Hypertension, acute with an admission bp of 160/70, present on admission -Allowed for permissive hypertension of 220/110 HR 60 to allow for brain perfusion. Increased his home lisinopril and started nifedipine for maybe a possible spastic component to cva as well. Blood pressures well controlled on these medications. 3. HLD, chronic -Lipid panel as noted above. -Atorvastatin 80 mg po at bedtime which is his home dose 4. Hypothyroidism - continue home levothyroxine. TSH unremarkable. Time Spent with Patient Time spent: Greater than 30 minutes Exam Vital Signs (past 8 hours): - 02/21/20 04:13 02/21/20 04:44 02/21/20 08:00 Temperature 97.4 F L 96.8 F L Pulse Rate 57 L 66 60 Respiratory Rate 16 18 Blood Pressure 109/56 L 131/67 Pulse Oximetry 98 Oxygen Delivery Method Room Air Oxygen Flow Rate 0 Narrative Exam Narrative: Gen: Alert, oriented, mildly disheveled appearing 79 y.o. male, HEENT: normocephalic, atraumatic, conjunctiva clear, sclera non-icteric, oral mucosa pink and moist, poor dentition Neck: supple, full ROM, no JVD, trachea is midline Resp: Lungs CTA, non-labored breathing CV: RRR, no murmur or rubs Abd: soft, non-tender, normoactive BTs Skin: no lesions or rashes, dry and intact Neuro: slightly Slurred speech but poor dentition, left sided visual field defect, flattened nasolabial fold with left sided droop improved, left sided hand freight flagman weaker than right. Alert and oriented X 4. Speech and thought pattern slurred but coherent. Extremities: moves all 4 extremities, requires assistance w/ambulation, wasting muscle mass of upper and lower extremities, negative Temitope?s sign Psyche: pleasant, normal mood and affect. Objective Labs Result Diagrams: 02/20/20 04:37 02/20/20 04:37 Discharge Plan Discharge Plan Patient Disposition: SNF Transfer to: [facility] Discharge comment: Elie Tong is a 79-year-old male with a history of a subdural hemorrhage and craniotomy in 2018, coronary artery disease, 5 way CABG, hyperlipidemia, and hypothyroidism who was admitted with an acute CVA. 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 He is being discharged to SNF rehab based on PT/OT recommendations. Patient lives alone in a hotel. 1. CVA, acute, present on admission, possibly complicated by related focal seizure activity -telemetry has thus far revealed no acute events -NIH scoring has fluctuated to as high as 14 and as low as 2 but improved to around 4 after initiation of keppra. Symptoms are routinely left-sided in nature. CTA head and neck x2 without acute thrombus. No interventions recommended per telestroke service. - MRI: thin band of sylvian cortex and contiguous posterior lentiform nucleus elevated diffusion signal consistent with mild subacute or acute ischemic injury in that area. This cannot be identified on the recent CT scanning. There also is a subtle finding of elevated FLAIR signal and slight contrast enhancement involving the dural surface of the left frontal region, in this patient with provided clinical history suggesting prior intracranial hemorrhage. The findings would raise concern for sequela of minimal dural scarring after subdural hematoma in the left frontal area. -continue asa daily and lipitor. -Complete Echo 02/18 was unremarkable. -Continued PT/OT, recommended discharge to SNF. -patient's recurrent symptoms likely associated focal seizure after infarct. [place] neurology recommended Keppra load and to continue 750 mg BID if effe ctive, which it has been. [place] did recommended outpatient neurology follow up. -fasting lipid panel with a triglyceride of 335, total cholesterol 169, LDL 79, HDL 23. 2. Hypertension, acute with an admission bp of 160/70, present on admission -Allowed for permissive hypertension of 220/110 HR 60 to allow for brain perfusion. Increased his home lisinopril and started nifedipine for maybe a possible spastic component to cva as well. Blood pressures well controlled on these medications. 3. HLD, chronic -Lipid panel as noted above. -Atorvastatin 80 mg po at bedtime which is his home dose 4. Hypothyroidism - continue home levothyroxine. TSH unremarkable. Discharge orders & Medications Prescriptions: New aspirin 81 mg Tablet,Delayed Release (Dr/Ec) 81 mg PO DAILY 30 Days Qty: 30 RF: 0 levetiracetam 750 mg tablet 750 mg PO BID 30 Days Qty: 60 RF: 0 nifedipine 30 mg Tablet Extended Release 24hr 30 mg PO DAILY 30 Days Qty: 30 RF: 0 Continued atorvastatin 80 mg Tablet 80 mg PO DAILY RF: 0 lisinopril 5 mg Tablet 5 mg PO DAILY RF: 0 levothyroxine [Levoxyl] 112 mcg tablet 112 mcg PO DAILY RF: 0 omeprazole 20 mg capsule,delayed release(DR/EC) 20 mg PO DAILY RF: 0 Discontinued Adult Low Dose Aspirin tablet 80 mg PO DAILY RF: 0 Follow up/Referrals: Elvis Herzog DO [Physician] - Discharge Health Status Precautions: [place] Diet/Activity/Treatments Diet: Diet as Tolerated and Low-sodium Liquid consistency: Normal/Thin Food texture: Regular Activity: As tolerated Special Rehabilitation Services Reason for rehabilitation: Therapy following stroke Rehab type: Physical therapy and Occupational therapy Visit Report/Discharge Packet Instructions: DI for Dizziness-Nonvertigo Discharges patient from system. Discharge Date/Time: 02/21/20 13:35 Quality Stroke Contraindication Not Initiating IV-Tpa: Not indicated Onset of Symptoms Date: 02/18/20 Onset of Symptoms Time: 12:00 Symptom Onset Unknown: Yes VTE Deep Vein Thrombosis/Pulmonary Embolism Present on Admission: No
--- NOTE | 2020-02-21 10:52 | CM.DPC ---
DCP: continued: Dr. Herzog has ok'd pt for d/c today to [facility]. Checked in with pt and he remains agreeable to same. Chiara/[facility] confirms w/c van can pick pt up at 1330. All orders for snf and PASRR are faxed now to [facility] and placed to snf packet. MALCOLM Blackwell is updated and given Nurse/Nurse report line. Pt's friend/senior electrical project manager of [employer] visited yesterday and is aware of the plan for short term snf stay.
--- NOTE | 2020-02-21 11:04 | PC.NURSE ---
Addendum entered by Rosalva Reid R.N. 02/21/20 13:01: Report called into [facility], Pt is participating with PT and OT today and eager to d/c. UPdate again to Timothy, per Pt request. IV and tele removed. Using Fww and sba to ambulate. Original Note: Am shift Pt is A/o x4, [place] [employer], Pt reports improvement to stroke symptoms. Ready to d/c to [facility] later today. Pt request to update Timothy, the insurance writer of the [facility] that he is staying/living at, [facility].
--- NOTE | 2020-02-21 11:22 | OT.IP.TRT ---
Current Diagnoses Cerebral infarction, unspecified (02/18/20) Occupational Therapy Treatment Note M2 OT-IP Current Condition Start: 02/19/20 16:38 Freq: Status: Active Protocol: Document 02/19/20 14:15 [facility] (Rec: 02/19/20 18:57 [facility] [id number]) Occupational Therapy Current Condition Current Condition Evaluation Date 02/19/20 Treatment Diagnosis Infarct, decreased mobilty Diagnosis Onset Date 02/18/20 M3 OT- IP Subjective and Pain Start: 02/19/20 16:38 Freq: Status: Active Protocol: Document 02/21/20 13:59 [facility] (Rec: 02/21/20 14:10 [facility] [id number]) OT- Subjective Occupational Therapy Visit Type Type Progress Note Visit Start Time 10:56 Visit Stop Time 11:22 Total Visit Minutes 26 OT Pain Assessment Pain When Pain Assessed At Rest Pain Present Pain Present Denied Pain M4 OT- IP ADL's Start: 02/19/20 16:38 Freq: Status: Active Protocol: Document 02/21/20 13:59 [facility] (Rec: 02/21/20 14:10 [facility] [id number]) OT [id number] Comments OT Self-Feeding Comments not meal time OT ADL-Grooming General Evaluation Grooming Ability Standby Assistance Areas Needing Assistance Combing/Brushing Hair,Face Washing Comments OT Grooming Comments in shower OT ADL-Oral Care Comments Oral Care Comments not performed OT ADL-Dressing General Eval Upper Body Dressing Ability Standby Assistance Lower Body Dressing Ability Standby Assistance Areas Needing Assistance Socks Comments OT Dressing Comments seated OT ADL-Toileting General Evaluation Toileting Ability Standby Assistance Comments OT Toileting Comments seated on toielt OT ADL-Bathing Bathing Type Bathing Type Shower General Evaluation Bathing Ability Contact Guard Assistance Areas Needing Assistance Retrieving/Setting Up Items Devices Bathing Equipment Hand Held Shower Sprayer, Shower Chair with Arms,Grab Bars Comments OT Bathing Comments seated in shower, pt needs vc to stay seated. PT states that he feels safer standing than sitting. M5 OT- IP IADL's Start: 02/19/20 16:38 Freq: Status: Active Protocol: Document 02/19/20 14:15 [facility] (Rec: 02/19/20 18:57 [facility] [id number]) OT-Instrumental Activities of Daily Living Home Safety Awareness Ability to Problem Solve Emergency Unable to Problem Solve Situations Home Safety Comments Pt initially states to call the heat sealing machine operator if having an emergency and then after cues able to identify 911. Pt states when asked if the toilet was flooding to clean it up with towels,, deon asked what he would do to stop the flooding, not able to answer. When given a cue, pt states would turn off the water. Pt not able to come up with ideas of how to prevent a toielt form flooding even after given cues. Pt states again to call the heat sealing machine operator in case of emergency. Medication Management Medication Management Comments Pt states has been procrastinating or having lack of initiation to refill his pills at times. Money Management Money Management Comments Pt at this time would benefit form assist as having truoble to subtract two digit numbers. Driving Driving Concerns Identified Regarding Safety M6 OT- IP Functional Cognition Start: 02/19/20 16:38 Freq: Status: Active Protocol: Document 02/20/20 10:44 [facility] (Rec: 02/20/20 11:05 [facility] [id number]) Cognitive Factors Limiting Selfcare Function Cognitive Ability Level of Alertness Alert Patient Orientation Name,Month,Year,Day of Week, Place Attention Span Ability Capable of Focused Attention, Capable of Sustained Attention Ability to Follow Commands Able to Follow One Step Commands Memory Description Short Term Impaired Safety Awareness Underestimates Need for Assistance Problem Solving Ability Needs Assist to Identify Solutions Executive Function Ability Unable to Make Plans,Unable to Organize Plans,Unable to Remember Details Cognitive Comments Cognitive Assessment Comments Pt needing cues to look and scan tray for items. Pt needing cues to sit dwon in order to take off his brief. Pt needing cues for completeness to wipe after a bowel movement. Pt needing concrete commands. Pt still at times needing initial cues to initiate task at hand. Pt does agree tht he is not at his baseline especially for his mobility needs and aggreeable to go to skilled rehab. OT- Vision and Hearing OT- Hearing Assessment OT- Hearing Assessment WFL OT- Vision Assessment Visual Attentiveness WFL Occular Pursuits WFL Visual Spacial Neglect Left Vision Assessment Comments Minimal neglect to the left today and actively able to move his eyes better to the left today. In addition , he is able to turn his head to the left to find items/objects more efficiently today. M7 OT- IP Mobility and Balance Start: 02/19/20 16:38 Freq: Status: Active Protocol: Document 02/21/20 13:59 [facility] (Rec: 02/21/20 14:10 [facility] [id number]) OT- Bed Mobility Assessment Rolling Type of Rolling Roll to Right Level of Assistance Standby Assistance Supine to Sit Supine to Sit Assist Standby Assistance Sit to Supine Sit to Supine Assist Standby Assistance Scooting Scooting to Edge of Bed Standby Assistance OT-Transfer Assessment Sit to and From Stand Sit to and from Stand Contact Guard Assistance Transfers Transfer Ability Contact Guard Assistance Technique Transfer Destination Bed,Chair,Shower Stall,Toilet Transfer Technique Stand Step Pivot Devices Transfer Assistive Devices Gait Belt,Front Wheeled Walker Comments Mobility Comments Pt needs VC to use walker OT- Balance Assessment Sitting Balance and Reactions Static Sitting Balance Ability Good Dynamic Sitting Balance Ability Fair M8 OT- IP Objective Assessments Start: 02/19/20 16:38 Freq: Status: Active Protocol: Document 02/19/20 14:15 [facility] (Rec: 02/19/20 18:57 [facility] [id number]) OT Gross Range of Motion Upper Extremity Range of Motion Assessment Within Functional Limits OT Strength Comments Strength Comments RUE 4/5, LUE 4-/5 throughout OT- Coordination Assessment Upper Extremity Finger to Nose Test Left UE Impaired OT Sensation Assessment Comments Summary Comments Intact for light touch BUE, LUE impaired at wrist and hands from proprioception and kinesthesia. M9 OT- IP Assessment and Plan Start: 02/19/20 16:38 Freq: Status: Active Protocol: Document 02/21/20 13:59 [facility] (Rec: 02/21/20 14:10 [facility] [id number]) OT Summary Assessment and Plan Potential Rehabilitation Potential Good Analytic Complexity at Evaluation Moderate Summary OT Impairments Strength,Balance,Coordination, Functional Cognition, Functional Mobility,Self- Feeding,Grooming,Dressing, Toileting,Bathing,Toilet Transfers,Shower Transfers, Activity Tolerance Progress Towards Goals Progressing Toward Goals Assessment Summary Pt progressing with therapy but demonstrates poor safety awareness with showering, and mobility using the walker. PT will continue to benefit from therapy services. Recommend d/ c to SNF. Goals Self-Feeding Goal Independent Grooming Goal Independent Dressing Goal Independent Toileting Goal Independent Bathing Goal Independent Toilet Transfer Goal Independent Shower Transfer Goal Independent Days to Meet Goals 10 Frequency of Treatment Frequency Of Treatment Once a Day Treatment Plan OT Treatment Plan ADL Training,Functional Cognition Training,Functional Mobility,Patient/Family Education,Discharge Planning Other Treatment Recommendations and Next Pt to be able to stand at sink Treatment Focus with SBA and complete grooming needs independently. Discharge Recommendations OT Discharge Recommendations SNF Rehab Home Equipment Needs Defer to SNF Transportation Needs at Discharge Private Vehicle
[2020-02-21 12:01] VITALS: PULSE 54; O2SAT 97
[2020-02-21 12:02] VITALS: BP 125/62; PULSE 56; TEMP 36.3; O2SAT 97
--- NOTE | 2020-02-21 13:02 | PT.IPTN ---
Current Diagnoses Cerebral infarction, unspecified (02/18/20) Physical Therapy Treatment Note M2 PT-IP Current Condition Start: 02/19/20 08:43 Freq: NEEDED Status: Active Protocol: Document 02/19/20 12:25 HH (Rec: 02/19/20 12:59 HH [id number]) Physical Therapy Current Condition Current Condition Evaluation Date 02/19/20 Treatment Diagnosis Stroke, TIA, s/p GLF, HTN, L sided weakness. Onset Date 02/18/20 Weight Bearing Status Weight Bearing Status Full Weight Bearing M3 PT-IP Subjective Start: 02/19/20 08:43 Freq: NEEDED Status: Active Protocol: Document 02/21/20 12:53 KS (Rec: 02/21/20 14:17 KS [id number]) Subjective Physical Therapy Visit Type Type Treatment Note Visit Start Time 12:53 Visit Stop Time 13:02 Total Visit Minutes 9 Number of SURVEYOR CHAIN HELPER Visits 2 Physical Therapy Visit Comments Patient Comments Pt agreeable to working w/ therapy. Therapy Pain Assessment Pain Present Pain Present Denied Pain M4 PT-IP Mobility and Gait Start: 02/19/20 08:43 Freq: NEEDED Status: Active Protocol: Document 02/21/20 12:53 KS (Rec: 02/21/20 14:17 KS [id number]) PT-Bed Mobility Assessment Supine to Sit Supine to Sit Contact Guard Assistance Sit to Supine Sit to Supine Contact Guard Assistance Scooting Scooting to Edge of Bed Contact Guard Assistance PT-Transfer Assessment Sit to and From Stand Sit to and from Stand Contact Guard Assistance,1 Person Assistance,Use of Upper Extremities Equipment Transfer Assistive Device Gait Belt,Front Wheeled Walker Orthotic/Prosthetic Devices or Brace: No Transfers Transfer Destination Bed,Toilet Transfer Technique pt ambulated w/ FWW Transfer Ability Level of Assist Contact Guard Assistance,1 Person Assistance,Use of Upper Extremities Comments Mobility Comments Pt in bed upon arrival from therapy and reported needing to use bathroom. Pt CGA for sup<>sit w/ HOB elevated and CGA for scooting to EOB and sit<>stand w/ FWW. Pt is impulsive requires cues for safety and hand placement for sit<>stand and FWW management. PT ambulated to toilet and to sink CGA w/ FWW. Pt able to maintain standing balance for hand washing and then requested to get back in bed to eat lunch. CGA for stand<> sit<>sup and repositioning in bed. Pt left in bed w/ all needs in reach. Gait Assessment Gait Gait Assistance Required: Contact Guard Assist,1 Person Assist Distance (Feet) 30 Assistive Devices Assistive Device Gait Belt,Front Wheeled Walker Gait Deviations General Gait Pattern Antalgic,Decreased Feet Clearance,Lateral Trunk Lean, Wide Based Gait Factors Limiting Gait Function Factors Limiting Gait Function Decreased Activity Tolerance, Decreased Strength, Incoordination,Poor Balance, Poor Safety Awareness Comments Gait Comments Please refer to mobility section for details. Stair Climbing Assessment Comments Stair Climbing Comments Did not assess PT-Balance Assessment Sitting Balance and Reactions Static Sitting Balance Ability Normal Dynamic Sitting Balance Ability Good Standing Balance and Reactions Static Standing Balance Ability Good Dynamic Standing Balance Ability Fair Device Used none M5 PT-IP Objective Assessments Start: 02/19/20 08:43 Freq: NEEDED Status: Active Protocol: Document 02/19/20 12:25 (Rec: 02/19/20 12:59 [id number]) Orientation Orientation/Cognition Level of Alertness Alert Orientation Name,Age,Birthday,Month,Date, Year,Day of Week,Place, Situation Language Function Ability No Deficits Noted Safety Awareness Decreased Safety Awareness Memory Description No Deficits Noted Gross Range of Motion Upper Extremity ROM Assessment Left Impaired Impairments slight downward drift at 90 flexion Lower Extremity ROM Assessment Left Impaired Impairments slight downward drift to maintain knee extension Strength Upper Extremity Strength Assessment Left Impaired Shoulder 3+/5 Elbow 4-/5 Wrist 3+/5 Hand 3+/5 Lower Extremity Strength Assessment Left Impaired Hip 4-/5 Knee 3+/5 Ankle 3+/5 Comments Strength Comments slight downward drift at 90 flexion slight downward drift to maintain knee extension Pt presents worsening symptoms after he sat in chair for approx 6 mins but then got improved at the 10 mins josé manuel. Coordination Assessment Gross Coordination Gross Coordination Impaired Assessment Finger to Nose Test Minimal Impairment Pronation/Supination Test Minimal Impairment Foot Tapping Test Minimal Impairment Heel on Lorenzo Test Minimal Impairment Coordination Comments mild delay in motor task execution. Mild overshooting for finger to nose test. Sensation Assessment Sensation Gross Sensation WNL Comments Sensation Comments no difference on sensation to LT/ pressure Muscle Tone Muscle Tone WNL No Muscle Tone Location Left Upper Extremity Type of Tone Hypotonicity Severity of Tone Mild Comments Muscle Tone Comments slightly less tone on L UE Other Assessments Other Other Assessments impaired L peripheral visual field L facial droop noted Pt presents worsening symptoms after he sat in chair for approx 6 mins but then got improved at the 10 mins josé manuel. M6 PT-IP Treatment Start: 02/19/20 08:43 Freq: NEEDED Status: Active Protocol: Document 02/21/20 12:53 KS (Rec: 02/21/20 14:17 KS [id number]) Physical Therapy Treatment Education Education Provided Safety M7 PT-IP Assessment and Plan Start: 02/19/20 08:43 Freq: NEEDED Status: Active Protocol: Document 02/21/20 12:53 KS (Rec: 02/21/20 14:17 KS [id number]) PT Summary Assessment and Plan Potential Rehabilitation Potential Fair Status of Condition at Evaluation Evolving Summary Impairments Pain,ROM,Strength,Balance, Coordination,Sensation,Tone, Cognition,Bed Mobility, Transfers,Gait,Activity Tolerance Progress Towards Goals Progressing Toward Goals,Slow Progress due to Medical Issues ,Slow Progress due to Activity Tolerance Assessment Summary Pt CGA for bed mobility, transfers, and ambulation w/ FWW however has poor safety awareness and is slightly impulsive, requiring cues for sequencing, hand placement, and FWW management. Pt ambulated ~30 ft w/ FWW, but then requested to finish treatment and return to bed to eat lunch. Pt will benefit from SNF to improve balance, gait, and functional mobility. Goals Bed Mobility Goal Independent Transfer Goal Independent,Cane,Front Wheeled Walker Gait Goal Independent,Cane,Front Wheel Walker Gait Distance 200 Other Goals 2-3 JF to RV if needed. mobility with LRAD Days to Meet Goals 5 Frequency of Treatment Frequency Of Treatment Once a Day Treatment Plan Physical Therapy Treatment Plan Bed Mobility Training,Transfer Training,Gait Training, Therapeutic Exercise,Balance Retraining,Discharge Planning, Neuromuscular Re-ed Other Recommendations and Next Treatment check vitals Focus L UE and LE strengthening mobility with LRAD Recommendations To Nursing Amount of Assist Needed 1 Person Assist Discharge Recommendations PT Discharge Recommendations Home,Home Health,SNF Rehab Other Discharge Recommendations At this point, recommend SNF d /t his unstable medical condition but will cont assess based on his progress. Equipment Needed for Home Before FWW if d/c home Discharge Transportation Needs at Discharge Private Vehicle,Wheelchair/ Cabulance
== END 2020-02-21 13:35 | DRG 65 ==
LOC: ED 18:08 → ICU 02-19 08:07 → AC 02-19 13:14 → ICU 02-19 14:39 → AC 02-21 11:25
PROVIDERS: Nurse Practitioner Adult Health; Nurse Practitioner Family; Admitting Provider Internal Medicine; Emergency Provider Emergency Medicine; Visit Provider Internal Medicine
DX: I63.9 Cerebral infarction, unspecified (principal); G81.94 Hemiplegia, unspecified affecting left nondominant side; R47.81 Slurred speech; R56.9 Unspecified convulsions; H53.8 Other visual disturbances; I25.10 Atherosclerotic heart disease of native coronary artery without angina pectoris; Z95.1 Presence of aortocoronary bypass graft; R29.810 Facial weakness; E78.5 Hyperlipidemia, unspecified; E03.9 Hypothyroidism, unspecified; Z87.891 Personal history of nicotine dependence; Z11.59 Encounter for screening for other viral diseases; R29.712 NIHSS score 12; W19.XXXA Unspecified fall, initial encounter
CPT/HCPCS: 36415; 70450; 70496; 70498; 70548; 70553; 80048; 80053; 80061; 80305; 81015; 82140; 82550; 82553; 82962; 83036; 83690; 83735; 84443; 84484; 85025; 85610; 85730; 87635; 87797; 92523; 92526; 93005; 93306; 97116; 97162; 97166; 97530; 97535; 99285; A9579; J1650; J1953; Q9967

== ENCOUNTER 2020-03-27 11:49 | Emergency (ER) | payer MEDICARE, OTHER, SELFPAY ==
[2020-02-18 19:09] VITALS: BMI 25.1
[2020-03-27] VITALS (7 sets, daily range): BP systolic 134–165; BP diastolic 70–82; PULSE 58–77; RESP 9–17; TEMP 36.4; O2SAT 97–100; BMI 25.0
[2020-03-27 12:33] LABS: Add Manual Diff / Slide Review NO; Basophils Absolute Auto 0 /uL (0-100); Basophils Percent Auto 0.8 % (0-2); Eosinophils Absolute Auto 200 /uL (0-450); Eosinophils Percent Auto 3.4 % (2-4); Hematocrit 43.9 % (41-53); Hemoglobin 15.2 g/dL (13.5-17.5); Lymphocytes Absolute Auto 1100 /uL (1100-4500); Lymphocytes Percent Auto 21.9 % (25-40); Mean Corpuscular HGB Conc 34.7 % (30-36); Mean Corpuscular Hemoglobin 31.6 PG (26-34); Monocytes Absolute Auto 400 /uL (0-900); Monocytes Percent Auto 7.6 % (3-14); Neutrophils Absolute Auto 3200 /uL (1500-7000); Neutrophils Percent Auto 66.3 % (50-75); Platelet Count 186 X10^3/uL (150-400); Red Blood Cell Count 4.82 X10^6/uL (4.5-5.9); Red Cell Distribution Width 13.2 % (11.6-14.8); White Blood Cell Count 4.9 X10^3/uL (4.5-11.0)
[2020-03-27] MEDS: SODIUM CHLORIDE 0.9% 1,000 ML 150 ML IV (12:42)
--- NOTE | 2020-03-27 12:46 | ED.WEAKNESS ---
HPI - Weakness General Chief complaint: Weakness Stated complaint: low BP, slow HR, not feeling great Time Seen by Provider: 03/27/20 12:30 Source: patient Mode of arrival: Ambulatory Limitations: no limitations History of Present Illness HPI Narrative: Patient is a 80-year-old male who presents with generalized weakness and possible low blood pressure. He does have a history of a recent CVA last month, he initially went to rehab and then was discharged home. He is currently living in the [facility] he has home health visiting him. The home health nurse came by to see him today and noted that his systolic was in the 80s. Patient denied any symptoms such as dizziness lightheadedness chest pain or worsening weakness. He states that he has been generally weak for some time. He complains of chronic ongoing diarrhea which has been going on for a few months. He said last night he did have explosive diarrhea he was unable to control it and it leaked all over the bathroom. He denies any diarrhea today he has no abdominal pain no nausea or vomiting. He says he has had previous episodes E coli. MD Complaint: generalized weakness Related Data Home Medications Medication Instructions Recorded Confirmed atorvastatin 80 mg PO DAILY 02/18/20 02/18/20 levothyroxine [Levoxyl] 112 mcg PO DAILY 02/18/20 02/18/20 lisinopril 5 mg PO DAILY 02/18/20 02/18/20 omeprazole 20 mg PO DAILY 02/18/20 02/18/20 Allergies Allergy/AdvReac Type Severity Reaction Status Date / Time No Known Drug Allergies Allergy Verified 03/27/20 11:59 Review of Systems Review of Systems Narrative: GENERAL: Denies chills, fatigue, malaise, fever, sweats, travel HEENT: Denies sinus pain, ear pain, sore throat, difficulty swallowing, neck pain RESPIRATORY: Denies dyspnea, cough, wheezing, hemoptysis, sputum. CARDIOVASCULAR: Denies chest pain, palpitations, orthopnea, edema GASTROINTESTINAL: Denies nausea, vomiting, abdominal pain, diarrhea, constipation, melena. : Chronic Denies dysuria, frequency, incontinence, hematuria, urinary retention, flank pain. MUSCULOSKELETAL: Denies weakness, joint pain, or bony pain SKIN: No rash, no erythema, no pruritus NEUROLOGIC: Denies weakness, dizziness, headache, numbness, change in speech, confusion PSYCHIATRIC: No concerning psychosocial issues. 12 point review of systems is negative except for those stated above and HPI ROS Unobtainable: All systems reviewed & are unremarkable except as noted in HPI and below Constitutional Constitutional: Denies chills, Denies fever(s), Denies lethargy and Denies weakness Eyes Eyes: Denies change in vision, Denies eye discharge, Denies irritation and Denies loss of vision Cardiovascular Cardiovascular: Denies chest pain, Denies irregular heart rhythm, Denies lightheadedness, Denies palpitations, Denies dyspnea, Denies dyspnea on exertion and Denies orthopnea Respiratory Respiratory: Denies cough, Denies dyspnea, Denies dyspnea on exertion and Denies wheezing Gastrointestinal Gastrointestinal: Reports as per HPI, Denies abdominal pain, Denies cramping, Reports diarrhea and Denies nausea Musculoskeletal Musculoskeletal: Denies muscle cramps and Reports muscle weakness Integumentary/Breasts Skin/Breast: Denies pruritus, Denies erythema, Denies rash and Denies wounds Neurologic Neurologic: Denies loss of vision and Denies weakness Endocrine Endocrine: Denies palpitations Allergic/Immunologic Allergic/Immunologic: Denies wheezing Patient History Medical History Coronary artery disease (Acute) Hypothyroid (Acute) Traumatic subdural hematoma (Acute) Surgical History History of cataract removal with insertion of prosthetic lens (Acute) Hx of cholecystectomy (Acute) Hx of five vessel coronary artery bypass (Acute) Social History household members: none Smoking Status: Former smoker alcohol intake: current Smoking Status: Former smoker alcohol intake frequency: holidays/special occasions only Substance Use Type: does not use Exam Initial Vital Signs Initial Vital Signs: Vital Signs Pulse Rate 68 03/27/20 11:58 Respiratory Rate 17 03/27/20 11:58 Pulse Oximetry 100 03/27/20 11:58 GENERAL: Well-appearing, well-nourished and in no acute distress. HEENT: Head atraumatic,EOMI, pupils reactive, face symmetric, moist mucous membranes CARDIOVASCULAR: Regular rate and rhythm without murmurs, rubs or gallops. RESPIRATORY: Breath sounds equal bilaterally, no wheezes rales or rhonchi. ABDOMEN: Soft, nontender. Normoactive bowel sounds all 4 quadrants. No guarding or rebound. EXTREMITIES: Normal range of motion, no clubbing or edema. Neurovascularly intact NEUROLOGICAL: Alert and oriented x4.Normal gait and speech. SKIN: Warm, dry, no laceration, no petechiae, no rashes or lesions. Course Orders Ordered: ED Orders 03/27/20 12:02 EKG-12 Lead Stat 03/27/20 12:15 Basic Metabolic Panel Stat Complete Blood Count AUTO DIFF Stat Troponin I Stat Discontinued Medications Sodium Chloride (Normal Saline 0.9%) 1,000 mls @ 150 mls/hr IV CONT GEORGE Last Infusion: 03/27/20 13:49 Dose: 0 mls/hr Documented by: Admin: 03/27/20 12:42 Dose: 150 mls/hr Documented by: MMINOR Vital Signs Vital signs: Vital Signs - 8 hr 03/27/20 11:58 03/27/20 11:59 03/27/20 12:00 Temperature 97.6 F Pulse Rate 68 60 65 Respiratory Rate 17 15 12 Blood Pressure 134/82 Pulse Oximetry 100 100 100 03/27/20 12:01 03/27/20 12:30 03/27/20 13:00 Temperature Pulse Rate 77 58 L 58 L Respiratory Rate 13 9 L Blood Pressure 165/75 H 154/72 H 152/70 H Pulse Oximetry 100 100 98 03/27/20 13:46 Temperature Pulse Rate 60 Respiratory Rate 15 Blood Pressure 150/71 H Pulse Oximetry 97 MDM - Weakness Lab Data Attestation: I reviewed the patient's lab results. Result diagrams: 03/27/20 12:15 03/27/20 12:15 Labs: Lab Results 03/27/20 03/27/20 Range/Units 12:15 12:15 WBC 4.9 (4.5-11.0) X10^3/uL RBC 4.82 (4.5-5.9) X10^6/uL Hgb 15.2 (13.5-17.5) g/dL Hct 43.9 (41-53) % MCV 91.0 (80-100) fL MCH 31.6 (26-34) PG MCHC 34.7 (30-36) % RDW 13.2 (11.6-14.8) % Plt Count 186 (150-400) X10^3/uL Neut % (Auto) 66.3 (50-75) % Lymph % (Auto) 21.9 L (25-40) % [place] % (Auto) 7.6 (3-14) % Eos % (Auto) 3.4 (2-4) % Baso % (Auto) 0.8 (0-2) % Neut # (Auto) 3200 (5698-4488) /uL Lymph # (Auto) 1100 (7006-7750) /uL [place] # (Auto) 400 (0-900) /uL Eos # (Auto) 200 (0-450) /uL Baso # (Auto) 0 (0-100) /uL Sodium 140 (137-145) mmol/L Potassium 3.9 (3.4-5.1) mmol/L Chloride 105 (98-107) mmol/L Carbon Dioxide 27 (22-32) mmol/L BUN 29 H (9-20) mg/dL Creatinine 1.23 (0.66-1.25) mg/dL Estimated GFR 56.8 L (>60) mL/min BUN/Creatinine Ratio 23.6 H (6-22) Glucose 140 H (80-110) mg/dL Calcium 10.2 (8.4-10.2) mg/dL Troponin I < 0.012 (0.01-0.034) ng/mL ECG Data Attestation: I personally reviewed and interpreted this ECG as follows: Prior ECG tracings: available for review Interpretation: Sinus rhythm rate [address] changes similar to previous EKG MDM Narrative Medical decision making narrative: The patient's blood pressure has never been low while he is in the emergency department. He has chronic ongoing weakness since his stroke. He has had ongoing diarrhea as well he is not significantly dehydrated although he does have a slight increase in creatinine of 1.2. He is given a L of fluid. He has not had any diarrhea well in the ED. He does have a history of E coli. At this time he does not appear septic. He has home health care and at this time I recommend outpatient follow-up. Discharge Plan Departure Patient Disposition: Home Clinical Impression: Weakness, Chronic diarrhea Discharge Date/Time: 03/27/20 13:51 Instructions: DI for Muscle Weakness Activity Restrictions/Additional Instructions: *You have been diagnosed with chronic diarrhea, weakness *What to do: Your blood pressure has not been level you been in the emergency department. Blood work is overall reassuring. I recommend you follow-up with your primary care doctor and continue to see your home health nurse *Continue to take medications as directed *Follow up with your primary care provider in 2-3 days *Return to ER if you should have increasing weakness, dizziness, lightheadedness or any new, worsening or concerning symptoms Prescriptions: No Action atorvastatin 80 mg Tablet 80 mg PO DAILY RF: 0 lisinopril 5 mg Tablet 5 mg PO DAILY RF: 0 levothyroxine [Levoxyl] 112 mcg tablet 112 mcg PO DAILY RF: 0 omeprazole 20 mg capsule,delayed release(DR/EC) 20 mg PO DAILY RF: 0
[2020-03-27 12:57] LABS: BUN Creatinine Ratio 23.6 (6-22); Blood Urea Nitrogen 29 mg/dL (9-20); Calcium 10.2 mg/dL (8.4-10.2); Carbon Dioxide 27 mmol/L (22-32); Chloride 105 mmol/L (98-107); Estimated Glomerular Filt Rate 56.8 mL/min (>60); Glucose 140 mg/dL (80-110); HEMOLYSIS < 15 (0-50); Potassium 3.9 mmol/L (3.4-5.1); Sodium 140 mmol/L (137-145)
[2020-03-27 13:07] LABS: Troponin I < 0.012 ng/mL (0.01-0.034)
== END 2020-03-27 13:51 | disposition home or self-care (01) ==
PROVIDERS: Nurse Practitioner Family; Emergency Provider Emergency Medicine
DX: K52.9 Noninfective gastroenteritis and colitis, unspecified (principal); R53.1 Weakness; R79.89 Other specified abnormal findings of blood chemistry; R42 Dizziness and giddiness
CPT/HCPCS: 80048; 84484; 85025; 93005; 96360; 99283; 99284

== ENCOUNTER 2020-04-16 15:34 | Emergency (ER) | payer MEDICARE, OTHER, SELFPAY ==
[2020-02-18 19:09] VITALS: BMI 25.1
[2020-04-16] VITALS (7 sets, daily range): BP systolic 127–155; BP diastolic 67–99; PULSE 54–72; RESP 15–22; TEMP 36.4; O2SAT 98–100
--- NOTE | 2020-04-16 15:55 | ED_ITS ---
HPI - Weakness General Chief complaint: Weakness Stated complaint: weakness, unsteady Time Seen by Provider: 04/16/20 15:55 Source: patient Mode of arrival: EMS Limitations: no limitations History of Present Illness HPI Narrative: The patient was seen here approximately 2 months ago with a TIA. From here was transferred to rehab. He has been back home in recent weeks. He was visited by home health today, the nurses were concerned that he is weak. He describes intermittent diarrhea for about 2 months, seemingly improved in the last several days. Would have formed stools for several days, the diarrhea for several days. He has no associated abdominal pain, nausea vomiting. There is no obvious hematochezia. He has chronic GI problems. His no headache, visual changes, chest discomfort or palpitations. His no focal numbness or weakness, although he has intermittent tremors/vibration type sensations in both upper extremities. He has no difficulty walking. He feels he is not eating and drinking well. Related Data Home Medications Medication Instructions Recorded Confirmed atorvastatin 80 mg PO DAILY 02/18/20 02/18/20 levothyroxine [Levoxyl] 112 mcg PO DAILY 02/18/20 02/18/20 lisinopril 5 mg PO DAILY 02/18/20 02/18/20 omeprazole 20 mg PO DAILY 02/18/20 02/18/20 Previous Rx's Medication Instructions Recorded potassium chloride 10 meq PO DAILY #30 cap 04/16/20 Allergies Allergy/AdvReac Type Severity Reaction Status Date / Time No Known Drug Allergies Allergy Verified 04/16/20 15:49 Review of Systems Constitutional Constitutional: Reports system reviewed and no additional complaints, except as documented, Denies body ache(s), Denies chills, Denies fatigue, Denies fever(s), Reports lethargy and Reports weakness Eyes Eyes: Denies change in vision ENT Ears, Nose, Mouth, and Throat: Denies change in voice, Denies neck pain and Denies sore throat Cardiovascular Cardiovascular: Denies chest pain, Denies irregular heart rhythm, Denies lightheadedness and Denies dyspnea Respiratory Respiratory: Denies cough, Denies dyspnea and Denies wheezing Gastrointestinal Gastrointestinal: Reports as per HPI, Denies abdominal pain, Reports change in stool character and Denies nausea Comments: Poor appetite. Genitourinary Genitourinary: Denies dysuria Genitourinary: Denies dysuria Musculoskeletal Musculoskeletal: Denies back pain and Denies neck pain Integumentary/Breasts Skin/Breast: Denies pruritus, Denies rash and Denies wounds Neurologic Neurologic: Denies confusion and Reports weakness Psychiatric Psychiatric: Denies anxiety, Denies confusion and Denies depression Endocrine Endocrine: Denies fatigue Allergic/Immunologic Allergic/Immunologic: Denies wheezing Patient History Medical History (Updated 04/16/20 @ 17:25 by Roger Munson MD) Brain TIA Coronary artery disease Hypothyroid Traumatic subdural hematoma Surgical History History of cataract removal with insertion of prosthetic lens Hx of cholecystectomy Hx of five vessel coronary artery bypass Social History household members: none Smoking Status: Former smoker alcohol intake: current Smoking Status: Former smoker alcohol intake frequency: holidays/special occasions only Substance Use Type: does not use Exam Initial Vital Signs Initial Vital Signs: Vital Signs Temperature 97.5 F L 04/16/20 15:44 Pulse Rate 72 04/16/20 15:44 Respiratory Rate 16 04/16/20 15:44 Blood Pressure 135/99 H 04/16/20 15:44 Pulse Oximetry 100 04/16/20 15:44 Const General: cooperative and well developed Nutritional Appearance: well nourished [facility] Head: normocephalic and atraumatic Mouth: oral mucosae normal Teeth and gingiva: dentition normal Throat: tonsils normal and uvula midline Eyes General: appearance normal, both eyes and all related structures Eyelids: eyelids normal Conjunctivae: conjunctivae normal Sclera: sclerae normal Pupils: PERRL EOM: EOM intact bilaterally Neck Neck: No lymphadenopathy and No JVD Resp Effort & Inspection: normal respiratory effort and able to speak in complete sentences Auscultation: clear to auscultation bilaterally, no rales, no rhonchi and no wheezes Cardio Rate: regular rate Rhythm: regular rhythm Heart Sounds: S1 normal, S2 normal, no click, no gallops, no murmurs and no rubs Pulses: normal peripheral pulses GI Palpation: soft and No tender Auscultation: normal bowel sounds Back/Spine/Pelvis Back: normal to inspection and No CVA tenderness Skin General: no rashes or lesions noted and No petechiae Neuro General: patient alert, patient oriented x3, gait normal and no focal motor deficits Speech: speech normal Extrem General: full ROM, no pedal edema and no calf tenderness Psych Mental Status: mental status grossly normal Course Course Course Narrative: The patient's hyperkalemia was noted. Potassium 40 mEq was given. He will be discharged on potassium supplements with his regular medications, and should recheck with his own physician. I ordered stool studies, a specimen has not been available. I will send him out with the order. He is drinking fluids, doing well. He has no complaints. Orders Ordered: ED Orders 04/16/20 15:45 Complete Blood Count AUTO DIFF Stat Comprehensive Metabolic Panel Stat Lipase Stat 04/16/20 15:55 GI Panel (Film Array) Stat Sodium Chloride (Normal Saline 0.9%) 1,000 mls @ 1,000 mls/hr IV BOLUS PRN PRN Reason: Fluid replacement Last Admin: 04/16/20 16:11 Dose: 1,000 mls/hr Documented by: MMINOR Discontinued Medications Potassium Chloride (Potassium Chloride 20 Meq Tab) 40 meq PO NOW ONE Stop: 04/16/20 16:35 Last Admin: 04/16/20 16:37 Dose: 40 meq Documented by: MMINOR Vital Signs Vital signs: Vital Signs - 8 hr 04/16/20 15:44 04/16/20 16:22 04/16/20 16:23 Temperature 97.5 F L Pulse Rate 72 61 60 Respiratory Rate 16 15 16 Blood Pressure 135/99 H 127/80 Pulse Oximetry 100 99 98 MDM - Weakness Lab Data Result diagrams: 04/16/20 15:45 04/16/20 15:45 Labs: Lab Results 04/16/20 04/16/20 Range/Units 15:45 15:45 WBC 6.7 (4.5-11.0) X10^3/uL RBC 4.61 (4.5-5.9) X10^6/uL Hgb 14.3 (13.5-17.5) g/dL Hct 40.4 L (41-53) % MCV 87.6 (80-100) fL MCH 31.1 (26-34) PG MCHC 35.5 (30-36) % RDW 13.2 (11.6-14.8) % Plt Count 223 (150-400) X10^3/uL Neut % (Auto) 62.0 (50-75) % Lymph % (Auto) 25.0 (25-40) % [place] % (Auto) 10.7 (3-14) % Eos % (Auto) 1.2 L (2-4) % Baso % (Auto) 1.1 (0-2) % Neut # (Auto) 4200 (0459-5138) /uL Lymph # (Auto) 1700 (9299-0519) /uL [place] # (Auto) 700 (0-900) /uL Eos # (Auto) 100 (0-450) /uL Baso # (Auto) 100 (0-100) /uL Sodium 142 (137-145) mmol/L Potassium 2.6 L* (3.4-5.1) mmol/L Chloride 106 (98-107) mmol/L Carbon Dioxide 25 (22-32) mmol/L BUN 32 H (9-20) mg/dL Creatinine 0.91 (0.66-1.25) mg/dL Estimated GFR > 60.0 (>60) mL/min BUN/Creatinine Ratio 35.2 H (6-22) Glucose 116 H (80-110) mg/dL Calcium 9.9 (8.4-10.2) mg/dL Total Bilirubin 1.3 (0.2-1.3) mg/dL AST 35 (17-59) IU/L ALT 30 (<50) IU/L Alkaline Phosphatase 121 (38-126) U/L Total Protein 7.9 (6.3-8.2) g/dL Albumin 4.6 (3.5-5.0) g/dL Globulin 3.3 (1.7-4.1) g/dL Albumin/Globulin Ratio 1.4 (1.0-2.8) Lipase 101 (23-300) U/L Discharge Plan Departure Patient Disposition: Home Clinical Impression: Acute hypokalemia Diarrhea Qualifiers: Diarrhea type: unspecified type Qualified Code(s): R19.7 - Diarrhea, unspe cified Instructions: Diarrhea, DI for Hypoglycemia Activity Restrictions/Additional Instructions: Continue your current medications. Potassium, 1 tablet daily as prescribed. Follow-up with your doctor, your labs should be re-evaluated next week. I ordered cyst stool test, you can have the sample returned to lab. Return to ER as needed. Prescriptions: New potassium chloride 10 mEq capsule, extended release 10 meq PO DAILY Qty: 30 RF: 0 No Action atorvastatin 80 mg Tablet 80 mg PO DAILY RF: 0 lisinopril 5 mg Tablet 5 mg PO DAILY RF: 0 levothyroxine [Levoxyl] 112 mcg tablet 112 mcg PO DAILY RF: 0 omeprazole 20 mg capsule,delayed release(DR/EC) 20 mg PO DAILY RF: 0
[2020-04-16 16:04] LABS: Add Manual Diff / Slide Review NO; Basophils Absolute Auto 100 /uL (0-100); Basophils Percent Auto 1.1 % (0-2); Eosinophils Absolute Auto 100 /uL (0-450); Eosinophils Percent Auto 1.2 % (2-4); Hematocrit 40.4 % (41-53); Hemoglobin 14.3 g/dL (13.5-17.5); Lymphocytes Absolute Auto 1700 /uL (1100-4500); Mean Corpuscular HGB Conc 35.5 % (30-36); Mean Corpuscular Hemoglobin 31.1 PG (26-34); Mean Corpuscular Volume 87.6 fL (80-100); Monocytes Absolute Auto 700 /uL (0-900); Monocytes Percent Auto 10.7 % (3-14); Neutrophils Absolute Auto 4200 /uL (1500-7000); Platelet Count 223 X10^3/uL (150-400); Red Blood Cell Count 4.61 X10^6/uL (4.5-5.9); Red Cell Distribution Width 13.2 % (11.6-14.8); White Blood Cell Count 6.7 X10^3/uL (4.5-11.0)
[2020-04-16] MEDS: SODIUM CHLORIDE 0.9% 1,000 ML 1000 ML IV (16:11)
[2020-04-16 16:17] LABS: Alanine Aminotransferase 30 IU/L (<50); Albumin 4.6 g/dL (3.5-5.0); Albumin Globulin Ratio 1.4 (1.0-2.8); Alkaline Phosphatase 121 U/L (38-126); Aspartate Aminotransferase 35 IU/L (17-59); BUN Creatinine Ratio 35.2 (6-22); Bilirubin Total 1.3 mg/dL (0.2-1.3); Blood Urea Nitrogen 32 mg/dL (9-20); Calcium 9.9 mg/dL (8.4-10.2); Carbon Dioxide 25 mmol/L (22-32); Chloride 106 mmol/L (98-107); Estimated Glomerular Filt Rate > 60.0 mL/min (>60); Globulin 3.3 g/dL (1.7-4.1); Glucose 116 mg/dL (80-110); HEMOLYSIS 25 (0-50); Lipase 101 U/L (23-300); Sodium 142 mmol/L (137-145); Total Protein 7.9 g/dL (6.3-8.2)
[2020-04-16 16:28] LABS: Potassium 2.6 mmol/L (3.4-5.1)
--- NOTE | 2020-04-16 16:33 | PC.NURSE ---
pt c/o involuntary tremors intermittently in bilateral arms
[2020-04-16] MEDS: POTASSIUM CHLORIDE 20 MEQ TAB 40 MEQ PO (16:37)
== END 2020-04-16 17:46 | disposition home or self-care (01) ==
PROVIDERS: Emergency Provider Emergency Medicine
DX: E87.6 Hypokalemia (principal); R19.7 Diarrhea, unspecified; I25.10 Atherosclerotic heart disease of native coronary artery without angina pectoris
CPT/HCPCS: 36415; 80053; 83690; 85025; 96360; 99281; 99284